=== PATIENT | male | born 1980 | race Caucasian/White ===

== ENCOUNTER 2016-11-01 02:43 | Emergency (ER) | payer SELFPAY ==
[~2016-11-01] VITALS: Ht 162.6 cm; Wt 86.2 kg
[~2016-11-01 02:43] MED LIST: ADENOSINE 6 MG/2 ML (ADENOCARD) VIAL IV ONE; AMLO5TAB2 PO; AMOX500C2 PO; ASP81CT PO; DILT120C85; DILT60TA PO; DLT30T PO; DOXY100C2 PO; HYDR1TAB PO; LEVO500T69 PO; NAPR-243 PO; TRAM-21 PO; TRIA16.5 NS; TRM50T PO
[2016-11-01] MEDS ORDERED: ASPI-808 PO (02:52)
[2016-11-01] MEDS ORDERED: ADENOSINE 6 MG/2 ML (ADENOCARD) VIAL IV ONE ×2 (03:00)
[2016-11-01] MEDS ORDERED: NS IV 1000 ML 1,000 ML IV ONE (03:00)
[2016-11-01 03:02] LABS: BASOPHILS % (AUTO) 0 % (0-10); EOSINOPHILS # (AUTO) 0.1 10^3/uL (0.0-0.3); EOSINOPHILS % (AUTO) 0 % (0-10); LYMPHOCYTES % (AUTO) 19 % (12-44); MEAN CORPUSCULAR HEMOGLOBIN 35 PG (25-34); MEAN CORPUSCULAR HGB CONC 37 G/DL (32-36); MEAN CORPUSCULAR VOLUME 95 FL (80-99); MEAN PLATELET VOLUME 10.6 FL (7.4-10.4); MONOCYTES # (AUTO) 1.7 X 10^3 (0.0-1.0); MONOCYTES % (AUTO) 8 % (0-12); NEUTROPHILS # (AUTO) 15.9 X 10^3 (1.8-7.8); NEUTROPHILS % (AUTO) 73 % (42-75); PLATELET COUNT 158 10^3/uL (130-400); RED BLOOD COUNT 5.22 10^6/uL (4.35-5.85); RED CELL DISTRIBUTION WIDTH 12.8 % (10.0-14.5); WHITE BLOOD COUNT 21.7 10^3/uL (4.3-11.0)
[2016-11-01 03:11] LABS: INR 0.9 (0.8-1.4); PROTHROMBIN TIME PATIENT 12.1 SEC (12.2-14.7)
[2016-11-01 03:29] LABS: ALANINE AMINOTRANSFERASE 58 U/L (0-55); ALBUMIN 5.1 G/DL (3.2-4.5); ANION GAP 14 MMOL/L (5-14); ASPARTATE AMINO TRANSFERASE 44 U/L (5-34); BILIRUBIN,TOTAL 0.7 MG/DL (0.1-1.0); BLOOD UREA NITROGEN 5 MG/DL (7-18); BUN/CREATININE RATIO 6; CALCIUM 8.7 MG/DL (8.5-10.1); CARBON DIOXIDE 18 MMOL/L (21-32); CHLORIDE 106 MMOL/L (98-107); GFR ESTIMATED > 60; GLUCOSE 120 MG/DL (70-105); MAGNESIUM 2.5 MG/DL (1.8-2.4); POTASSIUM 3.9 MMOL/L (3.6-5.0); SODIUM 138 MMOL/L (135-145); TOTAL PROTEIN 7.7 G/DL (6.4-8.2)
[2016-11-01 03:33] LABS: BAND NEUTROPHILS 0 %; BASOPHILS % (MANUAL) 0 %; EOSINOPHILS % (MANUAL) 1 %; LYMPHOCYTES % (MANUAL) 7 %; NEUTROPHILS % (MANUAL) 79 %; REACTIVE LYMPHOCYTES 10 %
[2016-11-01 03:35] LABS: MYOGLOBIN SERUM 64.9 NG/ML (10.0-92.0)
--- NOTE | 2016-11-01 03:41 | ED Cardiac General ---
History of Present Illness General Chief Complaint: Cardiac/General Problems Stated Complaint: HEART RATE Nursing Triage Note: Patient reports he was laying on the floor and his heart began to race. patient reports he is SOA and jittery. Patient reports having a history of SVT Source: patient, old records Exam Limitations: no limitations History of Present Illness Time seen by provider: 02:47 Initial Comments This 36-year-old with history of SVT presents to the emergency room with complaints of tachycardia and palpitations. Symptoms started just shortly before arrival. He states Valsalva maneuver has failed. He reports having been treated in an outside ER recently requiring adenosine therapy to abort the SVT. Patient is very anxious, smells of alcohol, and admits to drinking significantly today. He complains of significant dyspnea with his tachycardia. Allergies and Home Medications Allergies Coded Allergies: NKANo Known Allergies (Verified Allergy, Unknown, 11/21/06) No Known Drug Allergies (Unverified , 04/21/09) Home Medications Aspirin 325 Mg Tablet 325 MG PO DAILY (Reported) Review of Systems Constitutional: see HPI other (intoxicated) EENTM: No Symptoms Reported Respiratory: See HPI Cardiovascular: See HPI Gastrointestinal: No Symptoms Reported Genitourinary: No Symptoms Reported Musculoskeletal: no symptoms reported Skin: no symptoms reported Psychiatric/Neurological: No Symptoms Reported Endocrine: No Symptoms Reported Past Enxmdgi-Gfczoj-Btjbuz Hx Patient Social History Alcohol Use: Occasionally Uses Recreational Drug Use: No Smoking Status: Current Everyday Smoker Type Used: Cigarettes Recent Foreign Travel: No Contact w/Someone Who Travel: No Recent Infectious Disease Expo: No Recent Hopitalizations: Yes (kidney stone, enlarged liver, ) Physical Abuse Screen: No Sexual Abuse: No Surgeries HX Surgeries: Yes (right knee surgery, surgery on eye) Surgeries: Eye Surgery, Orthopedic Respiratory Hx Respiratory Disorders: No Cardiovascular Hx Cardiac Disorders: Yes (SVT) Neurological Hx Neurological Disorders: No Reproductive System Hx Reproductive Disorders: No Genitourinary Hx Genitourinary Disorders: Yes Gastrointestinal Hx Gastrointestinal Disorders: Yes Gastrointestinal Disorders: Chronic Constipation Musculoskeletal Hx Musculoskeletal Disorders: Yes (hx rhabdomyolysis) Endocrine Hx Endocrine Disorders: Yes HEENT HX ENT Disorders: Yes Psychosocial Hx Psychiatric Problems: No Integumentary HX Skin/Integumentary Disorder: No Blood Transfusions Hx Blood Disorders: No Physical Exam Vital Signs Vital Sign - Last 12Hours 11/01/16 02:49 Temp 98.2 Pulse 215 Resp 19 B/P 117/110 Pulse Ox 97 Capillary Refill : Less Than 3 Seconds General Appearance: WD/WN Mild Distress Other (Intoxicated) HEENT: PERRL/EOMI Normal ENT Inspection Other (oropharynx somewhat dry) Neck: Normal Inspection Respiratory: Lungs Clear Normal Breath Sounds No Accessory Muscle Use No Respiratory Distress Cardiovascular: No Edema No Murmur Tachycardia Gastrointestinal: Non Tender Soft Extremity: Normal Inspection No Pedal Edema Neurologic/Psychiatric: Alert Oriented x3 No Motor/Sensory Deficits Normal 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 smt technician II-XII Norm as Tested Other (intoxicated) Skin: Normal Color Warm/Dry Progress/Results/Core Measures Results/Orders Lab Results Laboratory Tests Test 11/01/16 02:55 11/01/16 03:50 11/01/16 04:46 Range/Units Activated Partial Thromboplast Time 26 24-35 SEC Alanine Aminotransferase (ALT/SGPT) 58 H 0-55 U/L Albumin 5.1 H 3.2-4.5 G/DL Alkaline Phosphatase 88 40-136 U/L Anion Gap 14 5-14 MMOL/L Aspartate Amino Transf (AST/SGOT) 44 H 5-34 U/L BUN/Creatinine Ratio 6 Band Neutrophils 0 % Basophils # (Auto) 0.0 0.0-0.1 10^3/uL Basophils % (Manual) 0 % Basophils (%) (Auto) 0 0-10 % Blood Morphology Comment NORMAL Blood Urea Nitrogen 5 L 7-18 MG/DL C-Reactive Protein High Sensitivity 0.25 0.00-0.50 MG/DL Calcium Level 8.7 8.5-10.1 MG/DL Carbon Dioxide Level 18 L 21-32 MMOL/L Chloride Level 106 98-107 MMOL/L Creatinine 0.90 0.60-1.30 MG/DL Eosinophils # (Auto) 0.1 0.0-0.3 10^3/uL Eosinophils % (Manual) 1 % Eosinophils (%) (Auto) 0 0-10 % Estimat Glomerular Filtration Rate > 60 Glucose Level 120 H 70-105 MG/DL Hematocrit 50 40-54 % Hemoglobin 18.3 H 13.3-17.7 G/DL INR Comment 0.9 0.8-1.4 Lymphocytes # (Auto) 4.0 1.0-4.0 X 10^3 Lymphocytes % (Manual) 7 % Lymphocytes (%) (Auto) 19 12-44 % Magnesium Level 2.5 H 1.8-2.4 MG/DL Mean Corpuscular Hemoglobin 35 H 25-34 PG Mean Corpuscular Hemoglobin Concent 37 H 32-36 G/DL Mean Corpuscular Volume 95 80-99 FL Mean Platelet Volume 10.6 H 7.4-10.4 FL Monocytes # (Auto) 1.7 H 0.0-1.0 X 10^3 Monocytes % (Manual) 3 % Monocytes (%) (Auto) 8 0-12 % Myoglobin 64.9 10.0-92.0 NG/ML Neutrophils # (Auto) 15.9 H 1.8-7.8 X 10^3 Neutrophils % (Manual) 79 % Neutrophils (%) (Auto) 73 42-75 % Platelet Count 158 130-400 10^3/uL Potassium Level 3.9 3.6-5.0 MMOL/L Prothrombin Time 12.1 L 12.2-14.7 SEC Reactive Lymphocytes 10 % Red Blood Count 5.22 4.35-5.85 10^6/uL Red Cell Distribution Width 12.8 10.0-14.5 % Serum Alcohol 291 H <10 MG/DL Sodium Level 138 135-145 MMOL/L TSH Saunders Testing 2.08 0.35-4.94 UIU/ML Total Bilirubin 0.7 0.1-1.0 MG/DL Total Protein 7.7 6.4-8.2 G/DL Troponin I < 0.30 <0.30 NG/ML White Blood Count 21.7 H 4.3-11.0 10^3/uL Ur Tricyclic Antidepressants Screen NEGATIVE NEGATIVE Urine Amphetamines Screen NEGATIVE NEGATIVE Urine Bacteria NEGATIVE /HPF Urine Barbiturates Screen NEGATIVE NEGATIVE Urine Benzodiazepines Screen NEGATIVE NEGATIVE Urine Bilirubin NEGATIVE NEGATIVE Urine Cannabinoids Screen NEGATIVE NEGATIVE Urine Casts NONE /LPF Urine Clarity CLEAR Urine Cocaine Screen NEGATIVE NEGATIVE Urine Color YELLOW Urine Crystals NONE /LPF Urine Culture Indicated NO Urine Glucose (UA) NEGATIVE NEGATIVE Urine Ketones NEGATIVE NEGATIVE Urine Leukocyte Esterase NEGATIVE NEGATIVE Urine Methadone Screen NEGATIVE NEGATIVE Urine Methamphetamines Screen NEGATIVE NEGATIVE Urine Mucus NEGATIVE /LPF Urine Nitrite NEGATIVE NEGATIVE Urine Opiates Screen NEGATIVE NEGATIVE Urine Oxycodone Screen NEGATIVE NEGATIVE Urine Phencyclidine Screen NEGATIVE NEGATIVE Urine Propoxyphene Screen NEGATIVE NEGATIVE Urine Protein NEGATIVE NEGATIVE Urine RBC NONE /HPF Urine RBC (Auto) NEGATIVE NEGATIVE Urine Specific [place] 1.005 L 1.016-1.022 Urine Squamous Epithelial Cells RARE /HPF Urine Urobilinogen NORMAL NORMAL MG/DL Urine WBC NONE /HPF Urine pH 6.5 5-9 Lactic Acid Level 1.4 0.5-2.0 MMOL/L My Orders Orders-WALLY BILLY MD Adenosine Injection (Adenocard Injection (11/01/16 02:43) Cbc With Automated Diff (11/01/16 02:49) Magnesium (11/01/16 02:49) Chest 1 View, Ap/Pa Only (11/01/16 02:49) Ekg Tracing (11/01/16 02:49) Cardiac Profile 1 (11/01/16 02:49) Comprehensive Metabolic Panel (11/01/16 02:49) Myoglobin Serum (11/01/16 02:49) Protime With Inr (11/01/16 02:49) Partial Thromboplastin Time (11/01/16 02:49) O2 (11/01/16 02:49) Monitor-Rhythm Ecg Trace Only (11/01/16 02:49) Saline Lock/Iv-Start (11/01/16 02:49) Adenosine Injection (Adenocard Injection (11/01/16 03:00) Adenosine Injection (Adenocard Injection (11/01/16 03:00) Alcohol (11/01/16 02:53) Drug Screen Stat (Urine) (11/01/16 02:53) Thyroid Analyzer (11/01/16 02:53) Ns Iv 1000 Ml (Sodium Chloride 0.9%) (11/01/16 03:00) Manual Differential (11/01/16 02:55) Ua Culture If Indicated (11/01/16 03:42) Chest Pa/Lat (2 View) (11/01/16 03:42) Hs C Reactive Protein (11/01/16 04:38) Lactic Acid Analyzer (11/01/16 04:38) Blood Culture (11/01/16 04:38) Ceftriaxone Injection (Rocephin Injectio (11/01/16 04:45) Influenza A And B Antigens (11/01/16 04:38) Ceftriaxone Injection (Rocephin Injectio (11/01/16 05:01) Normal Saline (Morton Mini) (Ns (Morton (11/01/16 05:02) Medications Given in ED Current Medications Medications Dose Ordered Sig/Bartolome Route Start Time Stop Time Status Last Admin Dose Admin Ceftriaxone Sodium/Sodium Chloride 50 ml @ 100 mls/hr ONCE ONCE IV 11/01/16 04:45 11/01/16 05:14 DC 11/01/16 05:15 100 MLS/HR Vital Signs/I&O Vital Sign - Last 12Hours 11/01/16 11/01/16 11/01/16 02:49 04:57 05:37 Temp 98.2 98.6 97.8 Pulse 215 105 102 Resp 19 12 21 B/P 117/110 97/62 Pulse Ox 97 98 99 Blood Pressure Mean: 112 Progress Note #1: Time: 03:40 Progress Note patient was successfully converted to sinus rhythm with 6 mg of IV adenosine. Significant leukocytosis was noted on CBC. A 2 view chest x-ray was ordered for a better view of the chest. UA was ordered to further evaluate for source of infection. Patient reports having had diarrhea and abdominal pain for 3 days prior to today. The symptoms are now gone. He has also had a recent cough. Progress Note #2: Time: 04:41 Progress Note Patient is tachycardic with a heart rate around 110 asleep. He has been hydrated with a liter of IV fluids and has had 1500 mL of urine output. He seems well hydrated. I have concerns about his tachycardia and leukocytosis although no source of infection has yet been found. Chest x-ray and urine were clear. Influenza screen will be collected along with lactic acid and blood cultures. Rocephin will be empirically administered. Disposition will be pending lab results. Progress Note #3: Time: 05:27 Progress Note lactic acid and CRP are both normal. This would make bacterial infection and sepsis very unlikely. Patient did have blood cultures drawn and Rocephin administered as a precaution. Influenza screen was also negative. Patient will be dismissed home to outpatient follow-up. Diagnostic Imaging Diagonstic Imaging: Xray Plain Films/CT/US/NM/MRI: chest Comments single view chest x-ray viewed by me and report not available. No significant abnormalities appreciated on the single view. Diagonstic Imaging: Xray Plain Films/CT/US/NM/MRI: chest Comments chest x-ray viewed by me. Report not yet available. No infiltrate or consolidation appreciated. Departure Impression Impression: Primary Impression: SVT (supraventricular tachycardia) Additional Impressions: Leukocytosis Qualified Code: D72.829 - Elevated white blood cell count, unspecified Sinus tachycardia Alcohol intoxication Qualified Code: F10.120 - Alcohol abuse with intoxication, uncomplicated Disposition: 01 HOME, SELF-CARE Condition: Improved Departure-Patient Inst. Decision time for Depature: 05:27 Referrals: CHUCK DALTON MD (PCP/Family) Primary Care Physician Patient Instructions: Alcohol Abuse and Alcoholism (DC), Paroxysmal Supraventricular Tachycardia (DC) Add. Discharge Instructions: Follow-up with your primary care provider in your [facility] as soon as possible. Return to care if symptoms worsen or if you have SVT unresponsive to Valsalva maneuvers. At your follow-up appointment please request a repeat blood draw to check your white blood cell count. Please follow-up within the next week. Reduce alcohol consumption to decrease risk of further problems. All discharge instructions reviewed with patient and/or family. Voiced understanding. Copy Copies To 1: DELMY ORTIZ MD Copies To 2: CHUCK DALTON MD, JOSHUA T MD Nov 01, 2016 03:41 All discharge instructions reviewed with patient and/or family. Voiced understanding. WALLY BILLY MD Nov 01, 2016 03:41
[2016-11-01 03:59] LABS: BILIRUBIN,URINE NEGATIVE (NEGATIVE); KETONES,URINE NEGATIVE (NEGATIVE); LEUKOCYTE ESTERASE ,URINE NEGATIVE (NEGATIVE); NITRITE,URINE NEGATIVE (NEGATIVE); PH,URINE 6.5 (5-9); PROTEIN,URINE NEGATIVE (NEGATIVE); UROBILINOGEN,URINE NORMAL (NORMAL)
[2016-11-01 04:08] LABS: SQUAMOUS EPITHELIAL CELL,UR RARE /HPF
[2016-11-01] MEDS ORDERED: cefTRIAXone INJECTION 1,000 MG in NORMAL SALINE (BAXTER MINI) 50 ML IV ONE (04:45)
[2016-11-01] MEDS ORDERED: cefTRIAXone 1 GM (ROCEPHIN) VIAL ONE (05:01)
[2016-11-01] MEDS ORDERED: NORMAL SALINE (BAXTER MINI) 50 ML IV ONE (05:02)
[2016-11-01 05:37] VITALS: BP 105/63
--- NOTE | 2016-11-01 06:41 | Diagnostic Imaging Report ---
Clinical indication: Patient complains of heart racing. Exam: Chest x-ray PA and lateral views. Comparisons: Chest x-ray dated 11/01/2016. Findings: Lungs/pleura: Lungs are clear. There is no pneumothorax. There is no pleural effusion. Mediastinum: Unremarkable. Pulmonary vasculature: Unremarkable. Heart: Unremarkable. Bones/extrathoracic soft tissue: Unremarkable. Impression: There is no radiographic evidence of acute cardiopulmonary process. Dictated by: Dictated on workstation # [id number]
--- NOTE | 2016-11-01 06:43 | Diagnostic Imaging Report ---
Clinical indication: Patient has symptoms of heart racing. Exam: Portable chest x-ray upright view. Comparisons: Chest x-ray dated 10/21/2011. Findings: Lungs/pleura: Lungs are clear. There is no pneumothorax. There is no pleural effusion. Mediastinum: Unremarkable. Pulmonary vasculature: Unremarkable. Heart: Unremarkable. Bones/extrathoracic soft tissue: Unremarkable. Impression: There is no radiographic evidence of acute cardiopulmonary process. Dictated by: Dictated on workstation # [id number]
== END 2016-11-01 05:42 | disposition home or self-care (01) ==
LOC: EDUNIT# 02:43 → ER 02:47
DX: I47.1 Supraventricular tachycardia (principal); D72.829 Elevated white blood cell count, unspecified; F41.9 Anxiety disorder, unspecified; F10.10 Alcohol abuse, uncomplicated; Y90.8 Blood alcohol level of 240 mg/100 ml or more; F17.210 Nicotine dependence, cigarettes, uncomplicated; Z79.84 Long term (current) use of oral hypoglycemic drugs
CPT/HCPCS: 36415; 71010; 71020; 80053; 80306; 80320; 81000; 83605; 83735; 83874; 84443; 84484; 85007; 85027; 85610; 85730; 86141; 87040; 87804; 93005; 93041; 96361; 96365; 96375

== ENCOUNTER 2016-11-18 19:57 | Emergency (ER) | payer SELFPAY ==
[~2016-11-18] VITALS: Ht 162.6 cm; Wt 86.2 kg
[~2016-11-18 19:57] MED LIST changes: -ADENOSINE 6 MG/2 ML (ADENOCARD) VIAL IV ONE; +ASPI-808 PO
[2016-11-18 20:10] LABS: BASOPHILS # (AUTO) 0.1 10^3/uL (0.0-0.1); BASOPHILS % (AUTO) 0 % (0-10); EOSINOPHILS # (AUTO) 0.2 10^3/uL (0.0-0.3); EOSINOPHILS % (AUTO) 1 % (0-10); LYMPHOCYTES # (AUTO) 4.9 X 10^3 (1.0-4.0); LYMPHOCYTES % (AUTO) 25 % (12-44); MEAN CORPUSCULAR HEMOGLOBIN 34 PG (25-34); MEAN CORPUSCULAR HGB CONC 36 G/DL (32-36); MEAN CORPUSCULAR VOLUME 95 FL (80-99); MEAN PLATELET VOLUME 10.3 FL (7.4-10.4); MONOCYTES # (AUTO) 1.1 X 10^3 (0.0-1.0); MONOCYTES % (AUTO) 6 % (0-12); NEUTROPHILS # (AUTO) 13.5 X 10^3 (1.8-7.8); NEUTROPHILS % (AUTO) 68 % (42-75); PLATELET COUNT 265 10^3/uL (130-400); RED BLOOD COUNT 5.23 10^6/uL (4.35-5.85); RED CELL DISTRIBUTION WIDTH 12.4 % (10.0-14.5); WHITE BLOOD COUNT 19.8 10^3/uL (4.3-11.0)
--- NOTE | 2016-11-18 20:10 | ED Cardiac General ---
History of Present Illness General Chief Complaint: Cardiac/General Problems Stated Complaint: SVT Nursing Triage Note: Patient brought in by EMS with complaints of SVT. patient was given 6mg adenosine History of Present Illness Time seen by provider: 20:00 Initial Comments 36-year-old male who presents status post SVT. Patient has a history of recurrent SVT. Doesn't take any outpatient medications because he states he can' t afford it. However patient does drink a 12 pack of day. Patient was brought in by EMS. EMS gave him 6 of adenosine and converted. They state that initial heart rate an EKG was SVT at 208. Patient at this time as no symptoms. Patient is ready to go home and would like a "short workup" Allergies and Home Medications Allergies Coded Allergies: NKANo Known Allergies (Verified Allergy, Unknown, 11/21/06) No Known Drug Allergies (Unverified , 04/21/09) Home Medications Metoprolol Succinate 25 Mg Tab.er.24h #30 25 MG PO DAILY Prescribed by: GM BRUSH on 11/18/162011 Review of Systems Constitutional: No chills, No fever EENTM: No Symptoms Reported Respiratory: No Symptoms Reported Cardiovascular: See HPI Gastrointestinal: No Symptoms Reported Genitourinary: No Symptoms Reported Musculoskeletal: no symptoms reported Skin: no symptoms reported Psychiatric/Neurological: No Symptoms Reported Past Cumhdoh-Owholg-Juylqw Hx Patient Social History Alcohol Use: Regular Use Recreational Drug Use: No Smoking Status: Current Everyday Smoker Type Used: Cigarettes Recent Foreign Travel: No Contact w/Someone Who Travel: No Recent Infectious Disease Expo: No Recent Hopitalizations: Yes (kidney stone, enlarged liver, ) Physical Abuse Screen: No Sexual Abuse: No Surgeries HX Surgeries: Yes (right knee surgery, surgery on eye) Surgeries: Eye Surgery, Orthopedic Respiratory Hx Respiratory Disorders: No Cardiovascular Hx Cardiac Disorders: Yes (SVT) Neurological Hx Neurological Disorders: No Reproductive System Hx Reproductive Disorders: No Genitourinary Hx Genitourinary Disorders: Yes Gastrointestinal Hx Gastrointestinal Disorders: Yes Gastrointestinal Disorders: Chronic Constipation Musculoskeletal Hx Musculoskeletal Disorders: Yes (hx rhabdomyolysis) Endocrine Hx Endocrine Disorders: Yes HEENT HX ENT Disorders: Yes Psychosocial Hx Psychiatric Problems: No Integumentary HX Skin/Integumentary Disorder: No Blood Transfusions Hx Blood Disorders: No Physical Exam Vital Signs Vital Sign - Last 12Hours 11/18/16 20:00 Temp 97.4 Pulse 128 Resp 18 B/P 138/99 Pulse Ox 99 Capillary Refill : Less Than 3 Seconds General Appearance: No Apparent Distress WD/WN HEENT: PERRL/EOMI TMs Normal Neck: Non Tender Respiratory: Chest Non Tender Lungs Clear Normal Breath Sounds Cardiovascular: No Edema No Gallop Tachycardia Gastrointestinal: Normal Bowel Sounds Extremity: Normal Capillary Refill Neurologic/Psychiatric: Alert Oriented x3 No Motor/Sensory Deficits Skin: Normal Color Progress/Results/Core Measures Results/Orders Lab Results Laboratory Tests Test 11/18/16 20:05 Range/Units Alanine Aminotransferase (ALT/SGPT) 31 0-55 U/L Albumin 4.7 H 3.2-4.5 G/DL Alkaline Phosphatase 87 40-136 U/L Anion Gap 11 5-14 MMOL/L Aspartate Amino Transf (AST/SGOT) 26 5-34 U/L BUN/Creatinine Ratio 10 Band Neutrophils 2 % Basophils # (Auto) 0.1 0.0-0.1 10^3/uL Basophils % (Manual) 0 % Basophils (%) (Auto) 0 0-10 % Blood Morphology Comment NORMAL Blood Urea Nitrogen 10 7-18 MG/DL Calcium Level 9.0 8.5-10.1 MG/DL Carbon Dioxide Level 21 21-32 MMOL/L Chloride Level 105 98-107 MMOL/L Creatinine 1.01 0.60-1.30 MG/DL Eosinophils # (Auto) 0.2 0.0-0.3 10^3/uL Eosinophils % (Manual) 2 % Eosinophils (%) (Auto) 1 0-10 % Estimat Glomerular Filtration Rate > 60 Glucose Level 90 70-105 MG/DL Hematocrit 50 40-54 % Hemoglobin 17.9 H 13.3-17.7 G/DL Lymphocytes # (Auto) 4.9 H 1.0-4.0 X 10^3 Lymphocytes % (Manual) 27 % Lymphocytes (%) (Auto) 25 12-44 % Magnesium Level 2.3 1.8-2.4 MG/DL Mean Corpuscular Hemoglobin 34 25-34 PG Mean Corpuscular Hemoglobin Concent 36 32-36 G/DL Mean Corpuscular Volume 95 80-99 FL Mean Platelet Volume 10.3 7.4-10.4 FL Monocytes # (Auto) 1.1 H 0.0-1.0 X 10^3 Monocytes % (Manual) 6 % Monocytes (%) (Auto) 6 0-12 % Myoglobin 62.8 10.0-92.0 NG/ML Neutrophils # (Auto) 13.5 H 1.8-7.8 X 10^3 Neutrophils % (Manual) 63 % Neutrophils (%) (Auto) 68 42-75 % Platelet Count 265 130-400 10^3/uL Potassium Level 4.0 3.6-5.0 MMOL/L Red Blood Count 5.23 4.35-5.85 10^6/uL Red Cell Distribution Width 12.4 10.0-14.5 % Sodium Level 137 135-145 MMOL/L Total Bilirubin 0.4 0.1-1.0 MG/DL Total Protein 7.2 6.4-8.2 G/DL Troponin I < 0.30 <0.30 NG/ML White Blood Count 19.8 H 4.3-11.0 10^3/uL My Orders Orders-BRUSH,GM L DO Cbc With Automated Diff (11/18/16 20:03) Magnesium (11/18/16 20:03) Ekg Tracing (11/18/16 20:03) Cardiac Profile 1 (11/18/16 20:03) Comprehensive Metabolic Panel (11/18/16 20:03) Myoglobin Serum (11/18/16 20:03) Monitor-Rhythm Ecg Trace Only (11/18/16 20:03) Aspirin Chewable Tablet (Baby Aspirin Ch (11/18/16 20:15) Saline Lock/Iv-Start (11/18/16 20:03) Manual Differential (11/18/16 20:05) Vital Signs/I&O Vital Sign - Last 12Hours 11/18/16 11/18/16 20:00 20:56 Temp 97.4 98.2 Pulse 128 117 Resp 18 16 B/P 138/99 Pulse Ox 99 99 Blood Pressure Mean: 112 ECG Initial ECG Impression Date: Nov 18, 2016 Initial ECG Impression Time: 20:05 Initial ECG Rate: 114 Initial ECG Rhythm: S.Tach Initial ECG Intervals: Normal Initial ECG Comparisson: Unchanged Comment Sinus Tachycardia Departure Communication Progress Notes pt ready for discharge, discussed with pt need for outpt follow up and medication to control symptoms, Impression Impression: Primary Impression: SVT (supraventricular tachycardia) Disposition: 01 HOME, SELF-CARE Condition: Stable/Unchanged Departure-Patient Inst. Referrals: DELMY ORTIZ MD (PCP/Family) Primary Care Physician Patient Instructions: Supraventricular Tachycardia (SVT) Scripts Metoprolol Succinate 25 Mg Tab.er.24h25 Mg PO DAILY #30 TAB Prov:GM BRUSH DO 11/18/16 GM BRUSH DO Nov 18, 2016 20:10
[2016-11-18] MEDS ORDERED: METO-270 PO (20:12)
[2016-11-18] MEDS ORDERED: ASPIRIN 81 MG CHEW (CHILDREN'S ASA) PO ONE (20:15)
[2016-11-18 20:24] LABS: BAND NEUTROPHILS 2 %; BASOPHILS % (MANUAL) 0 %; EOSINOPHILS % (MANUAL) 2 %; LYMPHOCYTES % (MANUAL) 27 %; NEUTROPHILS % (MANUAL) 63 %
[2016-11-18 20:26] LABS: ALANINE AMINOTRANSFERASE 31 U/L (0-55); ALBUMIN 4.7 G/DL (3.2-4.5); ANION GAP 11 MMOL/L (5-14); ASPARTATE AMINO TRANSFERASE 26 U/L (5-34); BILIRUBIN,TOTAL 0.4 MG/DL (0.1-1.0); BLOOD UREA NITROGEN 10 MG/DL (7-18); BUN/CREATININE RATIO 10; CARBON DIOXIDE 21 MMOL/L (21-32); CHLORIDE 105 MMOL/L (98-107); CREATININE SERUM 1.01 MG/DL (0.60-1.30); GFR ESTIMATED > 60; GLUCOSE 90 MG/DL (70-105); MAGNESIUM 2.3 MG/DL (1.8-2.4); SODIUM 137 MMOL/L (135-145); TOTAL PROTEIN 7.2 G/DL (6.4-8.2)
[2016-11-18 20:32] LABS: MYOGLOBIN SERUM 62.8 NG/ML (10.0-92.0)
[2016-11-18 20:56] VITALS: BP 130/79
== END 2016-11-18 20:55 | disposition home or self-care (01) ==
LOC: EDUNIT# 19:57 → ER 19:58
DX: I47.1 Supraventricular tachycardia (principal); F10.10 Alcohol abuse, uncomplicated; F17.210 Nicotine dependence, cigarettes, uncomplicated; Z91.14 Patient's other noncompliance with medication regimen
CPT/HCPCS: 36415; 80053; 83735; 83874; 84484; 85007; 85027; 93005; 93041

== ENCOUNTER 2016-12-24 20:07 | Emergency (ER) | payer SELFPAY ==
[~2016-12-24] VITALS: Ht 172.7 cm; Wt 81.6 kg
[~2016-12-24 20:07] MED LIST changes: +METO-270 PO
[2016-12-24] MEDS ORDERED: ASPIRIN 81 MG CHEW (CHILDREN'S ASA) PO ONE (20:15)
--- NOTE | 2016-12-24 20:42 | Diagnostic Imaging Report ---
INDICATION: Supraventricular tachycardia. COMPARISON: 11/01/2016. EXAMINATION: Single frontal view of the chest was obtained. FINDINGS: Normal heart size and pulmonary vascularity. The lungs are well aerated and clear. No large pleural effusion or pneumothorax is seen. The visualized osseous structures show no acute abnormalities. IMPRESSION: No acute cardiopulmonary process. Dictated by: Dictated on workstation # [id number]
[2016-12-24 20:46] LABS: BASOPHILS % (AUTO) 0 % (0-10); EOSINOPHILS # (AUTO) 0.2 10^3/uL (0.0-0.3); EOSINOPHILS % (AUTO) 2 % (0-10); LYMPHOCYTES # (AUTO) 2.7 X 10^3 (1.0-4.0); LYMPHOCYTES % (AUTO) 33 % (12-44); MEAN CORPUSCULAR HEMOGLOBIN 35 PG (25-34); MEAN CORPUSCULAR HGB CONC 36 G/DL (32-36); MEAN CORPUSCULAR VOLUME 97 FL (80-99); MEAN PLATELET VOLUME 10.4 FL (7.4-10.4); MONOCYTES % (AUTO) 12 % (0-12); NEUTROPHILS # (AUTO) 4.4 X 10^3 (1.8-7.8); NEUTROPHILS % (AUTO) 53 % (42-75); PLATELET COUNT 188 10^3/uL (130-400); RED BLOOD COUNT 4.88 10^6/uL (4.35-5.85); RED CELL DISTRIBUTION WIDTH 13.6 % (10.0-14.5); WHITE BLOOD COUNT 8.3 10^3/uL (4.3-11.0)
[2016-12-24 20:56] LABS: PROTHROMBIN TIME PATIENT 12.5 SEC (12.2-14.7)
[2016-12-24 21:06] LABS: ALANINE AMINOTRANSFERASE 88 U/L (0-55); ALBUMIN 4.1 G/DL (3.2-4.5); ANION GAP 16 MMOL/L (5-14); ASPARTATE AMINO TRANSFERASE 57 U/L (5-34); BILIRUBIN,TOTAL 0.4 MG/DL (0.1-1.0); BLOOD UREA NITROGEN 5 MG/DL (7-18); BUN/CREATININE RATIO 7; CALCIUM 8.5 MG/DL (8.5-10.1); CARBON DIOXIDE 18 MMOL/L (21-32); CHLORIDE 105 MMOL/L (98-107); CREATININE SERUM 0.75 MG/DL (0.60-1.30); GFR ESTIMATED > 60; GLUCOSE 118 MG/DL (70-105); MAGNESIUM 2.1 MG/DL (1.8-2.4); POTASSIUM 3.4 MMOL/L (3.6-5.0); SODIUM 139 MMOL/L (135-145); TOTAL PROTEIN 6.6 G/DL (6.4-8.2)
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
[2016-12-24] MEDS ORDERED: METO-333 PO (21:08)
[2016-12-24 21:13] LABS: MYOGLOBIN SERUM 44.5 NG/ML (10.0-92.0)
[2016-12-24 23:10] VITALS: BP 136/96
== END 2016-12-24 23:10 | disposition home or self-care (01) ==
LOC: EDUNIT# 20:07 → ER 20:08
DX: I47.1 Supraventricular tachycardia (principal); F10.10 Alcohol abuse, uncomplicated; F17.210 Nicotine dependence, cigarettes, uncomplicated
CPT/HCPCS: 36415; 71010; 80053; 83735; 83874; 84484; 85025; 85610; 85730; 93005; 93041

== ENCOUNTER 2017-03-11 22:30 | Emergency (ER) | payer SELFPAY ==
[~2017-03-11] VITALS: Ht 175.3 cm; Wt 81.6 kg
[~2017-03-11 22:30] MED LIST changes: +METO-333 PO
[2017-03-11 22:52] LABS: BASOPHILS % (AUTO) 0 % (0-10); EOSINOPHILS # (AUTO) 0.2 10^3/uL (0.0-0.3); EOSINOPHILS % (AUTO) 1 % (0-10); LYMPHOCYTES # (AUTO) 6.2 X 10^3 (1.0-4.0); LYMPHOCYTES % (AUTO) 45 % (12-44); MEAN CORPUSCULAR HEMOGLOBIN 34 PG (25-34); MEAN CORPUSCULAR HGB CONC 36 G/DL (32-36); MEAN CORPUSCULAR VOLUME 96 FL (80-99); MEAN PLATELET VOLUME 10.5 FL (7.4-10.4); MONOCYTES # (AUTO) 1.1 X 10^3 (0.0-1.0); MONOCYTES % (AUTO) 8 % (0-12); NEUTROPHILS # (AUTO) 6.3 X 10^3 (1.8-7.8); NEUTROPHILS % (AUTO) 46 % (42-75); PLATELET COUNT 278 10^3/uL (130-400); RED BLOOD COUNT 5.18 10^6/uL (4.35-5.85); RED CELL DISTRIBUTION WIDTH 12.3 % (10.0-14.5); WHITE BLOOD COUNT 13.8 10^3/uL (4.3-11.0)
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
[2017-03-11 22:57] LABS: PROTHROMBIN TIME PATIENT 12.8 SEC (12.2-14.7)
[2017-03-11] MEDS ORDERED: ASPIRIN 81 MG CHEW (CHILDREN'S ASA) PO ONE (23:00)
[2017-03-11 23:09] LABS: ALANINE AMINOTRANSFERASE 27 U/L (0-55); ANION GAP 20 MMOL/L (5-14); ASPARTATE AMINO TRANSFERASE 26 U/L (5-34); BILIRUBIN,TOTAL 0.4 MG/DL (0.1-1.0); BLOOD UREA NITROGEN 10 MG/DL (7-18); BUN/CREATININE RATIO 10; CARBON DIOXIDE 15 MMOL/L (21-32); CHLORIDE 107 MMOL/L (98-107); CREATININE SERUM 0.98 MG/DL (0.60-1.30); GFR ESTIMATED > 60; GLUCOSE 91 MG/DL (70-105); MAGNESIUM 2.9 MG/DL (1.8-2.4); POTASSIUM 3.4 MMOL/L (3.6-5.0); SODIUM 142 MMOL/L (135-145); TOTAL PROTEIN 7.7 G/DL (6.4-8.2)
[2017-03-11] MEDS ORDERED: METO-333 PO (23:16)
[2017-03-11 23:18] LABS: MYOGLOBIN SERUM 79.7 NG/ML (10.0-92.0)
[2017-03-11 23:24] VITALS: BP 136/86
[2017-03-12] MEDS ORDERED: NS IV 1000 ML 1,000 ML IV SCH (02:15)
--- NOTE | 2017-03-12 08:06 | Diagnostic Imaging Report ---
INDICATION: Heart palpitations COMPARISON: 12/24/2016 FINDINGS: Upright portable view of the chest is obtained. Heart size is normal. The pulmonary vessels appear unremarkable. There is no pneumothorax, mediastinal widening or pleural fluid. The lungs are clear. IMPRESSION: Negative chest Dictated by: Dictated on workstation # [id number]
== END 2017-03-11 23:24 | disposition left against medical advice (07) ==
LOC: ER 22:36 → EDUNIT# 22:36 → ER 23:24
DX: R00.0 Tachycardia, unspecified (principal); F10.120 Alcohol abuse with intoxication, uncomplicated; F17.210 Nicotine dependence, cigarettes, uncomplicated; Y90.8 Blood alcohol level of 240 mg/100 ml or more
CPT/HCPCS: 36415; 71010; 80053; 80320; 83735; 83874; 84484; 85025; 85610; 85730; 93005; 93041; 96360

== ENCOUNTER 2017-05-03 17:29 | Observation (INO) | payer OTHER ==
[~2017-05-03] VITALS: Ht 167.6 cm; Wt 97.5 kg
[2017-05-03] MEDS ORDERED: meTOproloL SUCCINATE 50 MG (TOPROL XL) TAB PO SCH (17:45)
[2017-05-03 17:56] LABS: BASOPHILS % (AUTO) 0 % (0-10); EOSINOPHILS % (AUTO) 0 % (0-10); LYMPHOCYTES # (AUTO) 2.8 X 10^3 (1.0-4.0); LYMPHOCYTES % (AUTO) 18 % (12-44); MEAN CORPUSCULAR HEMOGLOBIN 33 PG (25-34); MEAN CORPUSCULAR HGB CONC 35 G/DL (32-36); MEAN CORPUSCULAR VOLUME 95 FL (80-99); MEAN PLATELET VOLUME 10.4 FL (7.4-10.4); MONOCYTES # (AUTO) 0.9 X 10^3 (0.0-1.0); MONOCYTES % (AUTO) 6 % (0-12); NEUTROPHILS # (AUTO) 12.1 X 10^3 (1.8-7.8); NEUTROPHILS % (AUTO) 76 % (42-75); PLATELET COUNT 186 10^3/uL (130-400); RED BLOOD COUNT 4.77 10^6/uL (4.35-5.85); RED CELL DISTRIBUTION WIDTH 12.1 % (10.0-14.5); WHITE BLOOD COUNT 15.8 10^3/uL (4.3-11.0)
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
[2017-05-03 18:05] LABS: INR 1.1 (0.8-1.4); PROTHROMBIN TIME PATIENT 13.6 SEC (12.2-14.7)
[2017-05-03 18:17] LABS: ALANINE AMINOTRANSFERASE 25 U/L (0-55); ALBUMIN 4.3 GM/DL (3.2-4.5); AMYLASE 62 U/L (25-125); ANION GAP 13 MMOL/L (5-14); ASPARTATE AMINO TRANSFERASE 28 U/L (5-34); BILIRUBIN,TOTAL 0.5 MG/DL (0.1-1.0); BLOOD UREA NITROGEN 8 MG/DL (7-18); BUN/CREATININE RATIO 8; CALCIUM 8.3 MG/DL (8.5-10.1); CARBON DIOXIDE 18 MMOL/L (21-32); CHLORIDE 112 MMOL/L (98-107); CREATININE SERUM 0.98 MG/DL (0.60-1.30); GFR ESTIMATED > 60; GLUCOSE 82 MG/DL (70-105); LIPASE 25 U/L (8-78); MAGNESIUM 2.3 MG/DL (1.8-2.4); SODIUM 143 MMOL/L (135-145); TOTAL PROTEIN 7.1 GM/DL (6.4-8.2)
[2017-05-03 18:21] LABS: BAND NEUTROPHILS 1 %; BASOPHILS % (MANUAL) 0 %; EOSINOPHILS % (MANUAL) 0 %; LYMPHOCYTES % (MANUAL) 27 %; NEUTROPHILS % (MANUAL) 65 %
--- NOTE | 2017-05-03 18:45 | Diagnostic Imaging Report ---
INDICATION: Central chest pain radiating into the back. COMPARISON: 03/11/2017. FINDINGS: The lungs are clear. The heart and vessels are normal. There is no effusion or pneumothorax. IMPRESSION: No acute-appearing abnormality. Dictated by: Dictated on workstation # [id number]
[2017-05-03] MEDS ORDERED: NS IV 1000 ML 1,000 ML IV ONE (19:05)
[2017-05-03 20:30] VITALS: BP 102/67
[2017-05-03 21:00] VITALS: BP 103/56
[2017-05-03 21:30] VITALS: BP 95/54
[2017-05-03] MEDS ORDERED: ONDANSETRON 4 MG/2 ML (SDV) Z0FRAN IV PRN (21:30)
[2017-05-03] MEDS ORDERED: CATHETER FLUSH 10 ML SYR IV PRN (21:30)
--- OUTSIDE RECORDS SUMMARY | 2017-05-03 21:32 | XMS REPORT | Continuity of Care Document ---
Author Author [employer] Organization [employer] Address Unknown Phone Unavailable Care Team Providers Care Marketing Manager Name Role Phone [employer] Unavailable Unavailable Problems Medications Allergies, Adverse Reactions, Alerts Immunizations Results Vital Signs Encounters Procedures Plan of Care Social History Assessment and Plan Family History Value Date Source Advance Directives Order Name Results Value Date Source
--- OUTSIDE RECORDS SUMMARY | 2017-05-03 21:38 | XMS REPORT | Continuity of Care Document ---
Author Author [employer] Organization [facility] Address Unknown Phone Unavailable Care Team Providers Care Director Of Coding Name Role Phone [employer] Unavailable Unavailable Problems Medications Allergies, Adverse Reactions, Alerts Immunizations Results Vital Signs Encounters Procedures Plan of Care Social History Assessment and Plan Family History Value Date Source Advance Directives Order Name Results Value Date Source
[2017-05-03] MEDS: PANTOPRAZOLE 40 MG/10 ML (PROTONIX) VIAL IV SCH (21:48)
[2017-05-03] MEDS: NS IV 1000 ML 1,000 ML IV SCH (21:48)
[2017-05-03] MEDS: CATHETER FLUSH 10 ML SYR IV SCH (21:49)
[2017-05-03 22:00] VITALS: BP 92/54
[2017-05-03 23:00] VITALS: BP 96/51
[2017-05-04 04:20] VITALS: BP 88/53
[2017-05-04 04:39] LABS: BASOPHILS % (AUTO) 0 % (0-10); EOSINOPHILS % (AUTO) 0 % (0-10); LYMPHOCYTES # (AUTO) 2.5 X 10^3 (1.0-4.0); LYMPHOCYTES % (AUTO) 18 % (12-44); MEAN CORPUSCULAR HEMOGLOBIN 33 PG (25-34); MEAN CORPUSCULAR HGB CONC 34 G/DL (32-36); MEAN CORPUSCULAR VOLUME 99 FL (80-99); MEAN PLATELET VOLUME 10.7 FL (7.4-10.4); MONOCYTES # (AUTO) 0.8 X 10^3 (0.0-1.0); MONOCYTES % (AUTO) 6 % (0-12); NEUTROPHILS # (AUTO) 10.1 X 10^3 (1.8-7.8); NEUTROPHILS % (AUTO) 75 % (42-75); PLATELET COUNT 159 10^3/uL (130-400); RED BLOOD COUNT 4.56 10^6/uL (4.35-5.85); RED CELL DISTRIBUTION WIDTH 12.6 % (10.0-14.5); WHITE BLOOD COUNT 13.4 10^3/uL (4.3-11.0)
[2017-05-04 04:51] LABS: ANION GAP 13 MMOL/L (5-14); BLOOD UREA NITROGEN 12 MG/DL (7-18); BUN/CREATININE RATIO 15; CARBON DIOXIDE 16 MMOL/L (21-32); CHLORIDE 112 MMOL/L (98-107); CREATININE SERUM 0.81 MG/DL (0.60-1.30); GFR ESTIMATED > 60; POTASSIUM 4.2 MMOL/L (3.6-5.0); SODIUM 141 MMOL/L (135-145)
[2017-05-04 04:56] LABS: CHOLESTEROL 115 MG/DL (< 200); DIRECT LDL 61 MG/DL (1-129); TRIGLYCERIDES 131 MG/DL (<150); VLDL CHOLESTEROL 26 MG/DL (5-40)
[2017-05-04 04:57] LABS: GLUCOSE 52 MG/DL (70-105)
[2017-05-04] MEDS: CATHETER FLUSH 10 ML SYR IV SCH (05:22)
[2017-05-04] MEDS: NS IV 1000 ML 1,000 ML IV SCH (07:06)
[2017-05-04 07:08] LABS: BILIRUBIN,URINE NEGATIVE (NEGATIVE); KETONES,URINE 3+ (NEGATIVE); LEUKOCYTE ESTERASE ,URINE NEGATIVE (NEGATIVE); NITRITE,URINE NEGATIVE (NEGATIVE); PH,URINE 5 (5-9); PROTEIN,URINE 1+ (NEGATIVE); UROBILINOGEN,URINE NORMAL (NORMAL)
[2017-05-04 07:24] LABS: WBC,URINE RARE /HPF
[2017-05-04 08:11] VITALS: BP 96/64
[2017-05-04] MEDS ORDERED: MULT-35 PO (08:42)
[2017-05-04] MEDS ORDERED: ASPI325T32 PO (08:42)
[2017-05-04] MEDS: PANTOPRAZOLE 40 MG/10 ML (PROTONIX) VIAL IV SCH (10:01)
[2017-05-04] MEDS ORDERED: NS IV 1000 ML 1,000 ML IV SCH (10:30)
[2017-05-04] MEDS ORDERED: ONDANSETRON 4 MG/2 ML (SDV) Z0FRAN IV PRN (10:30)
[2017-05-04] MEDS ORDERED: LORazepam 1 MG (ATIVAN) TAB PO NR (10:44)
[2017-05-04] MEDS ORDERED: FOLI1TAB24 PO (10:45)
[2017-05-04] MEDS ORDERED: THIA100T12 PO (10:45)
[2017-05-04] MEDS ORDERED: LORA-405 PO (10:45)
--- NOTE | 2017-05-04 10:50 | Discharge Instructions ---
Discharge [facility] Discharge Medications New, Converted or Re-Newed RX: RX on Chart New Medications: Folic Acid (Folic Acid) 1 Mg Tablet 1 MG PO DAILY, #30 TAB 0 Refills Lorazepam (Ativan) 1 Mg Tablet 1 MG PO UD, #8 TAB 0 Refills take 2 tabs Tuesday night; take 1 tab TID , take 1 tab BID Tuesday, then 1 tab once on Tuesday Thiamine HCl (Thiamine HCl) 100 Mg Tablet 100 MG PO DAILY, #30 TAB 0 Refills Continued Medications: Aspirin (Aspirin EC) 325 Mg Tablet.dr 325 MG PO DAILY, TAB Metoprolol Tartrate (Metoprolol Tartrate) 25 Mg Tablet 25 MG PO BID PRN for CHEST PAIN, #30 TAB Multivitamin (Daily Multiple Vitamin) 1 Each Tablet 1 TAB PO DAILY, TAB Patient Instructions Goal/Follow Up Appt: 1. MEET WITH ANKUR AT [facility] IMMEDIATELY AFTER YOUR DISCHARGE FROM HOSPITAL. THEY ARE PART OF THE ADDICTIONS TREATMENT TEAM AT [facility]. 2. YOU HAVE AN APPOINTMENT WITH DR SÁNCHEZ ON TUESDAY AT 11AM. Patient Instructions: YOU MUST KEEP ALL APPOINTMENTS. ALCOHOL WITHDRAWAL CAN POSE SIGNIFICANT RISKS TO YOUR HEALTH INCLUDING HALLUCINATIONS AND/OR SEIZURES. WITH THE APPROPRIATE MEDICATIONS AND MEDICAL CARE PROVIDED BY [facility], YOU WILL NOT BE IN MEDICAL DANGER. IT IS VERY IMPORTANT THAT YOU KEEP YOUR APPOINTMENTS SO WE CAN SEE IF ANY MEDICATION CHANGES NEED TO TAKE PLACE BEFORE THE WEEKEND. Return to The Hospital For: CONFUSION, HALLUCINATIONS Activity & Diet Discharge Diet: No Restrictions Activity as Tolerated: Yes (NO DRIVING) Orders-Post D/C & Referrals Pneu Vac Indicated: Yes Copy Copies To 1: JOHNATHAN SÁNCHEZ MD, JULIE A MD May 04, 2017 10:49
--- NOTE | 2017-05-04 10:50 | Short Stay Summary ---
HPI Attending Physician Johnathan Sánchez MD PCP Shakira David MD Consult Date of Admission May 03, 2017 at 19:22 Home Medications Home Medications Reviewed patient Home Medication Reconciliation Form Allergies Coded Allergies: NKANo Known Allergies (Verified Allergy, Unknown, 11/21/06) No Known Drug Allergies (Unverified , 04/21/09) GOX-Ozqsqn-Cdixbe Hx Patient Social History Alcohol Use: Regular Use Recreational Drug Use: No Smoking Status: Current Everyday Smoker Type Used: Cigarettes 2nd Hand Smoke Exposure: Yes Recent Foreign Travel: No Contact w/other who traveled: No Recent Hopitalizations: No Recent Infectious Disease Expo: No Physical Abuse Screen: No Sexual Abuse: No Family Medical History Significant Family History: No Pertinent Family Hx Physical Exam-([facility]) Physical Exam Vital Signs VS - Last 72 Hours, by Label 05/03/17 05/03/17 05/03/17 05/03/17 17:30 20:15 20:30 21:00 Temp 97.6 98.9 Pulse 122 86 90 88 Resp 18 14 16 B/P (MAP) 130/76 102/67 103/56 Pulse Ox 96 98 98 98 O2 Delivery Nasal Cannula Nasal Cannula Nasal Cannula O2 Flow Rate 2.00 2.00 2.00 05/03/17 05/03/17 05/03/17 05/03/17 21:18 21:30 22:00 23:00 Pulse 88 80 82 B/P (MAP) 95/54 92/54 96/51 Pulse Ox 98 96 97 O2 Delivery Nasal Cannula Nasal Cannula Nasal Cannula Nasal Cannula O2 Flow Rate 2.00 2.00 2.00 2.00 05/04/17 05/04/17 05/04/17 05/04/17 00:00 01:00 04:10 04:20 Temp 97.9 Pulse 69 45 Resp 16 B/P (MAP) 88/53 Pulse Ox 99 99 O2 Delivery Nasal Cannula Nasal Cannula Nasal Cannula O2 Flow Rate 2.00 2.00 2.00 05/04/17 05/04/17 07:00 08:11 Temp 98.6 Pulse 54 62 Resp 12 B/P (MAP) 96/64 Pulse Ox 100 O2 Delivery Nasal Cannula O2 Flow Rate 2.00 Capillary Refill : Less Than 3 Seconds Clinical Quality Measures AMI/AHF: ASA po Prior to arrival: Yes DVT/VTE Risk/Contraindication: Risk Factor Score Per Nursin RFS Level Per Nursing on Admit: 2=Moderate JOHNATHAN SÁNCHEZ MD May 04, 2017 10:50
[2017-05-04 12:00] VITALS: BP 121/75
[2017-05-04 12:10] VITALS: BP 121/75
[2017-05-05] MEDS ORDERED: PANTOPRAZOLE 40 MG/10 ML (PROTONIX) VIAL IV SCH (09:00)
== END 2017-05-04 10:46 | disposition home or self-care (01) ==
LOC: EDUNIT# 17:29 → ER 17:30 → ICU 19:22 → UNDOADMOB 19:22 → ICU 20:30 → UNDODISOB 05-04 12:10
PROVIDERS: ADMIT Pediatrics; ATTEND Pediatrics
DX: F10.129 Alcohol abuse with intoxication, unspecified (principal); R00.0 Tachycardia, unspecified; R09.02 Hypoxemia; D72.829 Elevated white blood cell count, unspecified; R07.9 Chest pain, unspecified; F17.210 Nicotine dependence, cigarettes, uncomplicated; Y90.8 Blood alcohol level of 240 mg/100 ml or more
CPT/HCPCS: 36415; 71010; 80048; 80053; 80061; 80306; 80320; 81000; 82150; 82962; 83690; 83735; 83874; 84484; 85007; 85025; 85027; 85379; 85610; 85730; 93005; 93041; 96360; 99211

== ENCOUNTER 2017-10-25 23:20 | Emergency (ER) | payer SELFPAY ==
[~2017-10-25] VITALS: Ht 167.6 cm; Wt 97.5 kg
[~2017-10-25 23:20] MED LIST changes: +ASPI325T32 PO; +FOLI1TAB24 PO; +LORA-405 PO; -METO-270 PO; +METO-387 PO; +MULT-35 PO; +THIA100T12 PO
--- OUTSIDE RECORDS SUMMARY | 2017-10-25 23:28 | XMS REPORT | Continuity of Care Document ---
Author Author [employer] Organization [employer] Address Unknown Phone Unavailable Care Team Providers Care Plant Taxonomist Name Role Phone [employer] Unavailable Unavailable Problems Medications Allergies, Adverse Reactions, Alerts Immunizations Results Vital Signs Encounters Procedures Plan of Care Social History Assessment and Plan Family History Value Date Source Advance Directives Order Name Results Value Date Source
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
[2017-10-25] MEDS ORDERED: ACHD5005 PO (23:59)
[2017-10-26] MEDS ORDERED: HYDROcodone/APAP 5 MG/325 MG (LORTAB) TAB PO ONE
[2017-10-26 00:30] VITALS: BP 133/75
--- NOTE | 2017-10-26 08:15 | Diagnostic Imaging Report ---
INDICATION: Right knee pain AP, oblique, and lateral views of the right knee are obtained. No fracture or acute bony abnormality is seen. There is no definite joint effusion. IMPRESSION: Negative right knee. Dictated by: Dictated on workstation # [id number]
== END 2017-10-26 00:30 | disposition home or self-care (01) ==
LOC: EDUNIT# 23:20 → ER 23:24
DX: M25.461 Effusion, right knee (principal); M25.561 Pain in right knee; Z87.442 Personal history of urinary calculi; Z87.39 Personal history of other diseases of the musculoskeletal system and connective tissue; Z79.82 Long term (current) use of aspirin; Z77.22 Contact with and (suspected) exposure to environmental tobacco smoke (acute) (chronic); Z86.718 Personal history of other venous thrombosis and embolism; W22.03XA Walked into furniture, initial encounter
CPT/HCPCS: 73562

== ENCOUNTER 2018-12-15 20:14 | Emergency (ER) | payer SELFPAY ==
[~2018-12-15] VITALS: Ht 167.6 cm; Wt 97.5 kg
[~2018-12-15 20:14] MED LIST changes: +ACHD5005 PO
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
--- NOTE | 2018-12-15 20:25 | NUR ---
ppd officer yadira here talking with patient.
[2018-12-15 20:27] LABS: HEMOGLOBIN 16.9 G/DL (13.3-17.7); MEAN PLATELET VOLUME 10.3 FL (7.4-10.4); RED CELL DISTRIBUTION WIDTH 12.8 % (10.0-14.5)
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
[2018-12-15] MEDS ORDERED: IOHEXOL 350 MG/ML 100 ML (OMNIPAQUE 350) VIAL IV ONE (20:30)
[2018-12-15] MEDS ORDERED: NS 100 ML (IVPB) BAG IV ONE (20:30)
[2018-12-15] MEDS ORDERED: CATHETER FLUSH 10 ML SYR IV PRN (20:30)
[2018-12-15] MEDS ORDERED: RECEIVED CONTRAST (Hold Metformin) IV SCH (20:30)
--- NOTE | 2018-12-15 20:35 | NUR ---
dr mann here seeing pt.
[2018-12-15 20:40] LABS: ALANINE AMINOTRANSFERASE 31 U/L (0-55); ALBUMIN 4.8 GM/DL (3.2-4.5); ALKALINE PHOSPHATASE 94 U/L (40-136); BILIRUBIN,DIRECT 0.2 MG/DL (0.0-0.3); BILIRUBIN,INDIRECT 0.2 MG/DL; BILIRUBIN,TOTAL 0.4 MG/DL (0.1-1.0); BUN/CREATININE RATIO 12; CALCIUM 8.9 MG/DL (8.5-10.1); CARBON DIOXIDE 20 MMOL/L (21-32); CHLORIDE 106 MMOL/L (98-107); CREATININE SERUM 1.02 MG/DL (0.60-1.30); GFR ESTIMATED > 60; GLUCOSE 105 MG/DL (70-105); POTASSIUM 3.7 MMOL/L (3.6-5.0); SODIUM 140 MMOL/L (135-145); TOTAL PROTEIN 7.5 GM/DL (6.4-8.2)
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
[2018-12-15] MEDS ORDERED: ceFAZolin INJECTION 1,000 MG in NS (IVPB) 50 ML IV ONE (20:45)
[2018-12-15] MEDS ORDERED: TETANUS,DIPTH,PERTUSS P/F (BOOSTRIX) 0.5 ML VIAL IM ONE (20:45)
[2018-12-15] MEDS ORDERED: NS IV 1000 ML 1,000 ML IV SCH (20:50)
[2018-12-15] MEDS ORDERED: SULF1TAB35 PO (21:12)
[2018-12-15 21:21] VITALS: BP 135/89
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
== END 2018-12-15 21:21 | disposition home or self-care (01) ==
LOC: EDUNIT# 20:14 → ER 20:15
DX: S31.139A Puncture wound of abdominal wall without foreign body, unspecified quadrant without penetration into peritoneal cavity, initial encounter (principal); F10.10 Alcohol abuse, uncomplicated; F17.210 Nicotine dependence, cigarettes, uncomplicated; Z88.8 Allergy status to other drugs, medicaments and biological substances; Z98.890 Other specified postprocedural states; Z87.42 Personal history of other diseases of the female genital tract; Z87.19 Personal history of other diseases of the digestive system; Z87.442 Personal history of urinary calculi; Z23 Encounter for immunization; X99.1XXA Assault by knife, initial encounter
CPT/HCPCS: 36415; 71045; 71260; 74177; 80048; 80076; 80320; 85027; 86850; 86900; 86901; 90471; 90715; 93041; 96365

== ENCOUNTER 2018-12-17 13:44 | Emergency (ER) | payer SELFPAY ==
[~2018-12-17] VITALS: Ht 175.3 cm; Wt 99.8 kg
[~2018-12-17 13:44] MED LIST changes: +SULF1TAB35 PO
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
[2018-12-17] MEDS ORDERED: SULF1TAB35 PO (14:27)
[2018-12-17 14:35] VITALS: BP 124/80
== END 2018-12-17 14:35 | disposition home or self-care (01) ==
LOC: EDUNIT# 13:44 → ER 13:45
DX: S31.139D Puncture wound of abdominal wall without foreign body, unspecified quadrant without penetration into peritoneal cavity, subsequent encounter (principal); F41.9 Anxiety disorder, unspecified; F17.210 Nicotine dependence, cigarettes, uncomplicated; Z88.6 Allergy status to analgesic agent; Z88.1 Allergy status to other antibiotic agents; Z87.442 Personal history of urinary calculi; Z87.19 Personal history of other diseases of the digestive system; X58.XXXD Exposure to other specified factors, subsequent encounter

== ENCOUNTER 2019-04-08 23:39 | Emergency (ER) | payer SELFPAY ==
[~2019-04-08] VITALS: Ht 175.3 cm; Wt 90.7 kg
[~2019-04-08 23:39] MED LIST changes: +NS IV 1000 ML 1,000 ML ONE
[2019-04-08] MEDS ORDERED: meTOprolol 5 MG/5 ML (LOPRESSOR) VIAL IV ONE (23:45)
[2019-04-08] MEDS ORDERED: ASPIRIN 81 MG CHEW (CHILDREN'S ASA) PO ONE (23:45)
--- NOTE | 2019-04-08 23:52 | ED Cardiac General ---
History of Present Illness General Chief Complaint: Cardiac/General Problems Stated Complaint: CHEST PAIN Source: patient, EMS, old records Exam Limitations: no limitations History of Present Illness Date Seen by Provider: Apr 08, 2019 Time Seen by Provider: 23:38 Initial Comments Patient presents to ER by EMS with chief complaint of rapid heart rate starting about 45 minutes prior to arrival. He has a history of SVT. EMS gave him 6 mg of Adenocard en route after having a heart rate in the 230 range and failing Valsalva maneuvers. Patient tried Valsalva maneuvers at home himself. He is to follow-up with Dr. David but he's lost to follow-up. He was taking aspirin and metoprolol tartrate 25 mg twice a day however he's been out of the metoprolol for about a month and is been out of aspirin for several months. No history of coronary disease, heart attacks, familial history of heart attacks, hypertension. He does smoke about 2 packs of cigarettes per day and regularly drinks alcohol but denies recreational drug use. He does not have diabetes, hyperlipidemia. Most recently he attends with [facility]. Allergies and Home Medications Allergies Coded Allergies: acetaminophen (Verified Allergy, Mild, 04/08/19) naproxen (Verified Allergy, Mild, 04/08/19) NKANo Known Allergies (Verified Allergy, Unknown, 04/08/19) Home Medications Metoprolol Tartrate 25 Mg Tablet, 25 MG PO BID PRN for CHEST PAIN Prescribed by: VINCENZO OATES on 03/11/17 2316 Sulfamethoxazole/Trimethoprim 1 Each Tablet, 1 EACH PO BID Prescribed by: GEO GARCIA on 12/15/18 2112 Sulfamethoxazole/Trimethoprim 1 Each Tablet, 1 EACH PO BID Prescribed by: ROSALVA MANCIA on 12/17/18 1427 Patient Home Medication List Home Medication List Reviewed: Yes Review of Systems Review of Systems Constitutional: No chills, No fever EENTM: No Blurred Vision, No Double Vision Respiratory: Denies Cough, Denies Shortness of Air Cardiovascular: Denies Chest Pain, Denies Edema Gastrointestinal: Denies Constipated, Denies Diarrhea Past Jpjsgia-Mykvih-Ybomqr Hx Patient Social History Alcohol Use: Regular Use Alcohol Beverage of Choice: Beer Recreational Drug Use: No Smoking Status: Current Everyday Smoker Type Used: Cigarettes (2 ppd) 2nd Hand Smoke Exposure: Yes Recent Hopitalizations: No Immunizations Up To Date Tetanus Booster (TDap): Unknown PED Vaccines UTD: No Seasonal Allergies Seasonal Allergies: No Past Medical History Surgeries: Yes (right knee surgery, surgery on eye) Eye Surgery, Orthopedic Respiratory: No Currently Using CPAP: No Currently Using BIPAP: No Cardiac: Yes (SVT) Neurological: No Reproductive Disorders: No Sexually Transmitted Disease: No HIV/AIDS: No Genitourinary: Yes Kidney Stones Gastrointestinal: Yes Chronic Constipation Musculoskeletal: No Endocrine: No HEENT: No Eye Injury Loss of Vision: Denies Hearing Impairment: Denies Cancer: No Did You Recieve Any Treatments: No Psychosocial: Yes Anxiety Integumentary: No Blood Disorders: No Adverse Reaction/Blood Tranf: No Family Medical History No Pertinent Family Hx Physical Exam Vital Signs Vital Signs - First Documented 04/08/19 23:41 Pulse 130 Resp 14 B/P (MAP) 145/100 (115) Pulse Ox 100 O2 Delivery Room Air Capillary Refill : Height, Weight, BMI Height: 5'9.00" Weight: 220lbs. 0.0oz. 99.107449fs; 28.12 BMI Method:Stated General Appearance: Anxious, Mild Distress HEENT: PERRL/EOMI, TMs Normal, Pharynx Normal, Moist Mucous Membranes Neck: Full Range of Motion, Normal Inspection Respiratory: Chest Non Tender, Lungs Clear, Normal Breath Sounds, No Accessory Muscle Use, No Respiratory Distress Cardiovascular: No Edema, Normal Peripheral Pulses, Tachycardia Gastrointestinal: Normal Bowel Sounds, Non Tender, Soft Neurologic/Psychiatric: Alert, Oriented x3 Skin: Normal Color, Warm/Dry Progress/Results/Core Measures Results/Orders Lab Results Laboratory Tests Test 04/08/19 23:45 Range/Units White Blood Count 12.6 H 4.3-11.0 10^3/uL Red Blood Count 4.84 4.35-5.85 10^6/uL Hemoglobin 16.0 13.3-17.7 G/DL Hematocrit 44 40-54 % Mean Corpuscular Volume 92 80-99 FL Mean Corpuscular Hemoglobin 33 25-34 PG Mean Corpuscular Hemoglobin Concent 36 32-36 G/DL Red Cell Distribution Width 13.3 10.0-14.5 % Platelet Count 229 130-400 10^3/uL Mean Platelet Volume 10.5 H 7.4-10.4 FL Neutrophils (%) (Auto) 52 42-75 % Lymphocytes (%) (Auto) 38 12-44 % Monocytes (%) (Auto) 9 0-12 % Eosinophils (%) (Auto) 1 0-10 % Basophils (%) (Auto) 0 0-10 % Neutrophils # (Auto) 6.6 1.8-7.8 X 10^3 Lymphocytes # (Auto) 4.8 H 1.0-4.0 X 10^3 Monocytes # (Auto) 1.1 H 0.0-1.0 X 10^3 Eosinophils # (Auto) 0.2 0.0-0.3 10^3/uL Basophils # (Auto) 0.0 0.0-0.1 10^3/uL Prothrombin Time 13.2 12.2-14.7 SEC INR Comment 1.0 0.8-1.4 Activated Partial Thromboplast Time 32 24-35 SEC Sodium Level 138 135-145 MMOL/L Potassium Level 3.6 3.6-5.0 MMOL/L Chloride Level 104 98-107 MMOL/L Carbon Dioxide Level 18 L 21-32 MMOL/L Anion Gap 16 H 5-14 MMOL/L Blood Urea Nitrogen 12 7-18 MG/DL Creatinine 1.02 0.60-1.30 MG/DL Estimat Glomerular Filtration Rate > 60 BUN/Creatinine Ratio 12 Glucose Level 98 70-105 MG/DL Calcium Level 8.7 8.5-10.1 MG/DL Corrected Calcium 8.3 L 8.5-10.1 MG/DL Magnesium Level 2.0 1.8-2.4 MG/DL Total Bilirubin 0.4 0.1-1.0 MG/DL Aspartate Amino Transf (AST/SGOT) 29 5-34 U/L Alanine Aminotransferase (ALT/SGPT) 38 0-55 U/L Alkaline Phosphatase 90 40-136 U/L Myoglobin 78.6 10.0-92.0 NG/ML Troponin I < 0.028 <0.028 NG/ML Total Protein 6.9 6.4-8.2 GM/DL Albumin 4.5 3.2-4.5 GM/DL My Orders Orders - GEO GARCIA Ns Iv 1000 Ml (Sodium Chloride 0.9%) (04/08/19 23:39) Cbc With Automated Diff (04/08/19 23:44) Magnesium (04/08/19 23:44) Chest 1 View, Ap/Pa Only (04/08/19 23:44) Ekg Tracing (04/08/19 23:44) Cardiac Profile 1 (04/08/19 23:44) Comprehensive Metabolic Panel (04/08/19 23:44) Myoglobin Serum (04/08/19 23:44) Protime With Inr (04/08/19 23:44) Partial Thromboplastin Time (04/08/19 23:44) O2 (04/08/19 23:44) Monitor-Rhythm Ecg Trace Only (04/08/19 23:44) Lipid Panel (04/09/19 06:00) Ed Iv/Invasive Line Start (04/08/19 23:44) Aspirin Chewable Tablet (Baby Aspirin Ch (04/08/19 23:45) Metoprolol Tartrate Injection (Lopressor (04/08/19 23:45) Metoprolol Succinate (Xl) Tab (Toprol Xl (04/09/19 00:00) Medications Given in ED Current Medications Medications Dose Ordered Sig/Bartolome Route Start Time Stop Time Status Last Admin Dose Admin Aspirin 324 mg ONCE ONCE PO 04/08/19 23:45 04/08/19 23:47 DC 04/08/19 23:56 324 MG Metoprolol Tartrate 5 mg ONCE ONCE IV 04/08/19 23:45 04/08/19 23:47 DC 04/08/19 23:55 5 MG Sodium Chloride 1,000 ml @ STK-MED ONCE .ROUTE 04/08/19 23:39 04/08/19 23:44 DC 04/08/19 23:46 0 MLS/HR Vital Signs/I&O 04/08/19 04/08/19 23:41 23:41 Pulse 130 Resp 14 B/P (MAP) 145/100 (115) Pulse Ox 100 100 O2 Delivery Room Air Room Air 04/09/19 00:00 Intake Total 400 ml Balance 400 ml Progress Progress Note #1: Time: 23:50 Progress Note Patient presents with a heart rate in the 130s. We'll give him 5 of metoprolol every 10-15 minutes until he get his heart rate under better control with a max dose of 15 mg. Obtain basic labs looking for evidence of cardiac strain. EKG shows tachycardia 120, sinus. Progress Note #2: Time: 00:41 Progress Note After 15 mg of Toprol-XL and 5 mg IV the patient's heart rate came down to about 105. His blood pressure has stayed steady in the 120s over 80s. Blood work otherwise is okay. No history of coronary disease and is not had any chest pain. He is feeling much better so were going to provide him with a prescription for some metoprolol and let him go home. Initial ECG Impression Date: Apr 08, 2019 Initial ECG Impression Time: 23:45 Initial ECG Rate: 119 Initial ECG Rhythm: S.Tach Initial ECG Intervals: Normal Initial ECG Impression: Nonspecific Changes Comment Sinus tachycardia without significant ST-T wave elevation or depression. Diagnostic Imaging Diagonstic Imaging: Xray Plain Films/CT/US/NM/MRI: chest (1v) Comments No acute cardiopulmonary processes noted. Reviewed: Reviewed by Me Departure Impression Primary Impression: SVT (supraventricular tachycardia) Disposition: 01 HOME, SELF-CARE Condition: Improved Departure-Patient Inst. Decision time for Depature: 00:59 Referrals: [facility] [place] (PCP/Family) Primary Care Physician Patient Instructions: Paroxysmal Supraventricular Tachycardia (DC) Add. Discharge Instructions: Please resume your metoprolol 25 mg twice a day starting this morning. Follow-up with your primary care doctor this week. All discharge instructions reviewed with patient and/or family. Voiced understanding. Scripts Metoprolol Tartrate (Metoprolol Tartrate) 25 Mg Tablet 25 MG PO BID, #60 TAB 0 Refills Prov: GEO GARCIA 04/09/19 GEO GARCIA Apr 08, 2019 23:52
--- NOTE | 2019-04-08 23:56 | NUR ---
BP 127/94, P-112 SPo2-98% prior to IV metoprolol administration. BP 126/83, P-105, SPo2-99% prior to PO metoprolol administration.
[2019-04-08 23:59] LABS: BASOPHILS % (AUTO) 0 % (0-10); EOSINOPHILS # (AUTO) 0.2 10^3/uL (0.0-0.3); EOSINOPHILS % (AUTO) 1 % (0-10); HEMATOCRIT 44 % (40-54); LYMPHOCYTES # (AUTO) 4.8 X 10^3 (1.0-4.0); LYMPHOCYTES % (AUTO) 38 % (12-44); MEAN CORPUSCULAR HEMOGLOBIN 33 PG (25-34); MEAN CORPUSCULAR HGB CONC 36 G/DL (32-36); MEAN CORPUSCULAR VOLUME 92 FL (80-99); MEAN PLATELET VOLUME 10.5 FL (7.4-10.4); MONOCYTES # (AUTO) 1.1 X 10^3 (0.0-1.0); MONOCYTES % (AUTO) 9 % (0-12); NEUTROPHILS # (AUTO) 6.6 X 10^3 (1.8-7.8); NEUTROPHILS % (AUTO) 52 % (42-75); PLATELET COUNT 229 10^3/uL (130-400); RED CELL DISTRIBUTION WIDTH 13.3 % (10.0-14.5); WHITE BLOOD COUNT 12.6 10^3/uL (4.3-11.0)
[2019-04-09] MEDS ORDERED: meTOproloL SUCCINATE 50 MG (TOPROL XL) TAB PO SCH
[2019-04-09 00:25] LABS: ALANINE AMINOTRANSFERASE 38 U/L (0-55); ALBUMIN 4.5 GM/DL (3.2-4.5); ALKALINE PHOSPHATASE 90 U/L (40-136); BILIRUBIN,TOTAL 0.4 MG/DL (0.1-1.0); BUN/CREATININE RATIO 12; CALCIUM 8.7 MG/DL (8.5-10.1); CARBON DIOXIDE 18 MMOL/L (21-32); CHLORIDE 104 MMOL/L (98-107); CREATININE SERUM 1.02 MG/DL (0.60-1.30); GFR ESTIMATED > 60; GLUCOSE 98 MG/DL (70-105); POTASSIUM 3.6 MMOL/L (3.6-5.0); SODIUM 138 MMOL/L (135-145); TOTAL PROTEIN 6.9 GM/DL (6.4-8.2)
[2019-04-09 00:29] LABS: PROTHROMBIN TIME PATIENT 13.2 SEC (12.2-14.7)
--- NOTE | 2019-04-09 00:59 | NUR ---
Report given to Mitra LAUREANO.
[2019-04-09] MEDS ORDERED: METO-333 PO (01:00)
[2019-04-09 01:28] VITALS: BP 126/83
--- NOTE | 2019-04-09 05:38 | Diagnostic Imaging Report ---
Clinical indication: Patient felt the heart was racing. Patient has history of SVT. Exam: Portable chest x-ray upright view. Comparisons: Chest x-ray dated 12/15/2018. Findings: Lungs/pleura: Lungs are clear. There is no pneumothorax. There is no pleural effusion. Mediastinum: Unremarkable. Pulmonary vasculature: Unremarkable. Heart: Unremarkable. Bones/extrathoracic soft tissue: Unremarkable. Impression: There is no radiographic evidence of acute cardiopulmonary process. Dictated by: Dictated on workstation # [id number]
== END 2019-04-09 01:31 | disposition home or self-care (01) ==
LOC: EDUNIT# 23:39 → ER 23:40
DX: I47.1 Supraventricular tachycardia (principal); F17.210 Nicotine dependence, cigarettes, uncomplicated; Z88.8 Allergy status to other drugs, medicaments and biological substances; Z88.1 Allergy status to other antibiotic agents; Z87.442 Personal history of urinary calculi; Z87.19 Personal history of other diseases of the digestive system
CPT/HCPCS: 36415; 71045; 80053; 83735; 83874; 84484; 85025; 85610; 85730; 93005; 93041; 96361; 96374

== ENCOUNTER 2019-04-23 14:28 | Emergency (ER) | payer SELFPAY ==
[~2019-04-23] VITALS: Ht 175.3 cm; Wt 90.7 kg
[~2019-04-23 14:28] MED LIST changes: -NS IV 1000 ML 1,000 ML ONE
--- NOTE | 2019-04-23 14:55 | ED Chest Pain ---
General Chief Complaint: Chest Pain Stated Complaint: CHF;HYPOXIA History of Present Illness Date Seen by Provider: Apr 23, 2019 Time Seen by Provider: 14:40 Initial Comments 38-year-old male presents for chest pain. He has a history of SVT with treatment via EMS with [facility] approx 2 weeks ago. He reports the pain began at 0900 this morning. It has been lasting 5-10 seconds, with 7-8 episodes since this morning. He is supposed to be taking aspirin daily, however he doesn't take this. He is on labetalol for blood pressure. He denies any shortness of breath, nausea, vomiting, or diaphoresis when he cut the chest pain. Timing/Duration: other (6-8 hours) Severity/Quality: mild Location: substernal Radiation: no radiation Activities at Onset: none Prior CP/Workup: angina, echocardiography, other (SVT) ASA po COURT DEPUTY: No NTG SL COURT DEPUTY: No Associated Symptoms: denies symptoms Allergies and Home Medications Allergies Coded Allergies: acetaminophen (Verified Allergy, Mild, 04/08/19) naproxen (Verified Allergy, Mild, 04/08/19) NKANo Known Allergies (Verified Allergy, Unknown, 04/08/19) Home Medications Metoprolol Tartrate 25 Mg Tablet, 25 MG PO BID PRN for CHEST PAIN Prescribed by: VINCENZO OATES on 03/11/17 2316 Metoprolol Tartrate 25 Mg Tablet, 25 MG PO BID Prescribed by: GEO GARCIA on 04/09/19 0100 Nitroglycerin 0.4 Mg Tab.subl, 0.4 MG SL UD PRN for CHEST PAIN Prescribed by: ROSALVA MANCIA on 04/23/19 1624 Patient Home Medication List Home Medication List Reviewed: Yes Review of Systems Review of Systems Constitutional: no symptoms reported, see HPI Cardiovascular: See HPI, Chest Pain Gastrointestinal: See HPI; Denies Abdominal Pain, Denies Diarrhea, Denies Nausea, Denies Poor Fluid Intake, Denies Vomiting All Other Systems Reviewed Negative Unless Noted: Yes Past Zevcdbb-Ncnrha-Lvzizu Hx Past Med/Social Hx: Reviewed Nursing Past Med/Soc Hx Patient Social History Alcohol Use: Occasionally Uses Number of Drinks Today: AA Alcohol Beverage of Choice: Beer Recreational Drug Use: Yes (12PK A DAY) Smoking Status: Current Everyday Smoker Type Used: Cigarettes 2nd Hand Smoke Exposure: Yes Recent Hopitalizations: No Immunizations Up To Date Tetanus Booster (TDap): Unknown PED Vaccines UTD: No Seasonal Allergies Seasonal Allergies: No Past Medical History Surgeries: Yes (right knee surgery, surgery on eye) Eye Surgery, Orthopedic Respiratory: No Currently Using CPAP: No Currently Using BIPAP: No Cardiac: Yes (SVT) Neurological: No Reproductive Disorders: No Sexually Transmitted Disease: No HIV/AIDS: No Genitourinary: Yes Kidney Stones Gastrointestinal: Yes Chronic Constipation Musculoskeletal: No Endocrine: No HEENT: No Eye Injury Loss of Vision: Denies Hearing Impairment: Denies Cancer: No Did You Recieve Any Treatments: No Psychosocial: Yes Anxiety Integumentary: No Blood Disorders: No Adverse Reaction/Blood Tranf: No Family Medical History No Pertinent Family Hx Physical Exam Vital Signs Vital Signs - First Documented 04/23/19 14:28 Pulse 75 Resp 18 B/P (MAP) 129/90 (103) Pulse Ox 98 O2 Delivery Room Air Capillary Refill : Height, Weight, BMI Height: 5'9.00" Weight: 200lbs. 0.0oz. 90.195731ei; 28.12 BMI Method:Stated General Appearance: No Apparent Distress, WD/WN HEENT: PERRL/EOMI, TMs Normal, Normal ENT Inspection, Pharynx Normal Neck: Full Range of Motion, Normal Inspection, Non Tender, Supple Respiratory: Chest Non Tender, Lungs Clear, Normal Breath Sounds Cardiovascular: Regular Rate, Rhythm, No Murmur, Normal Peripheral Pulses Gastrointestinal: Normal Bowel Sounds, Non Tender, Soft Extremity: Normal Capillary Refill, Normal Inspection, Normal Range of Motion, No Calf Tenderness Neurologic/Psychiatric: Alert, Oriented x3, No Motor/Sensory Deficits, Normal Mood/Affect Skin: Normal Color, Warm/Dry Lymphatic: No Adenopathy Progress/Results/Core Measures Results/Orders Lab Results Laboratory Tests Test 04/23/19 14:35 Range/Units White Blood Count 8.1 4.3-11.0 10^3/uL Red Blood Count 4.68 4.35-5.85 10^6/uL Hemoglobin 15.3 13.3-17.7 G/DL Hematocrit 44 40-54 % Mean Corpuscular Volume 93 80-99 FL Mean Corpuscular Hemoglobin 33 25-34 PG Mean Corpuscular Hemoglobin Concent 35 32-36 G/DL Red Cell Distribution Width 12.8 10.0-14.5 % Platelet Count 209 130-400 10^3/uL Mean Platelet Volume 10.9 H 7.4-10.4 FL Neutrophils (%) (Auto) 48 42-75 % Lymphocytes (%) (Auto) 39 12-44 % Monocytes (%) (Auto) 10 0-12 % Eosinophils (%) (Auto) 3 0-10 % Basophils (%) (Auto) 0 0-10 % Neutrophils # (Auto) 3.9 1.8-7.8 X 10^3 Lymphocytes # (Auto) 3.2 1.0-4.0 X 10^3 Monocytes # (Auto) 0.8 0.0-1.0 X 10^3 Eosinophils # (Auto) 0.2 0.0-0.3 10^3/uL Basophils # (Auto) 0.0 0.0-0.1 10^3/uL Sodium Level 142 135-145 MMOL/L Potassium Level 4.2 3.6-5.0 MMOL/L Chloride Level 109 H 98-107 MMOL/L Carbon Dioxide Level 25 21-32 MMOL/L Anion Gap 8 5-14 MMOL/L Blood Urea Nitrogen 15 7-18 MG/DL Creatinine 1.03 0.60-1.30 MG/DL Estimat Glomerular Filtration Rate > 60 BUN/Creatinine Ratio 15 Glucose Level 96 70-105 MG/DL Calcium Level 9.4 8.5-10.1 MG/DL Corrected Calcium 9.1 8.5-10.1 MG/DL Magnesium Level 1.8 1.8-2.4 MG/DL Total Bilirubin 0.4 0.1-1.0 MG/DL Aspartate Amino Transf (AST/SGOT) 19 5-34 U/L Alanine Aminotransferase (ALT/SGPT) 30 0-55 U/L Alkaline Phosphatase 73 40-136 U/L Myoglobin 40.7 10.0-92.0 NG/ML Troponin I < 0.028 <0.028 NG/ML B-Type Natriuretic Peptide 65.7 <100.0 PG/ML Total Protein 6.8 6.4-8.2 GM/DL Albumin 4.4 3.2-4.5 GM/DL Amylase Level 62 25-125 U/L Serum Alcohol < 10 <10 MG/DL Vital Signs/I&O 04/23/19 14:28 Pulse 75 Resp 18 B/P (MAP) 129/90 (103) Pulse Ox 98 O2 Delivery Room Air Progress Progress Note : Time: 14:40 Progress Note Seen and evaluated, will obtain EKG, chest x-ray, labs and aspirin 324 mg orally. 1515 labs essentially normal, awaiting UA. Patient reports no further chest pain. 1615 all were Negative further chest pain. Recommended follow-up with cardiology appointment made for April 28. Testing isn't taking an aspirin daily and decreasing cigarette usage. Discharge instructions and return precautions reviewed with the patient. All questions answered. Initial ECG Impression Date: Apr 23, 2019 Initial ECG Impression Time: 14:30 Initial ECG Rate: 78 Initial ECG Rhythm: Normal Sinus Initial ECG Intervals: Normal Initial ECG Intervals TX 208, QRSD 104, QT 364, QTc 415; [place] P 55; QRS 53; T 20 Initial ECG Impression: Normal Initial ECG Comparisson: Unchanged Comment Reviewed with Dr. Lynn, concurred with interpretation. Diagnostic Imaging Diagonstic Imaging: Xray Plain Films/CT/US/NM/MRI: chest Comments [facility], [place] NAME: CHARITY NEAL [facility] REC#: [id number] PT STATUS: REG ER : 1980 PHYSICIAN: ROSALVA MANCIA ADMIT DATE: 04/23/19/ER Draft Date of Exam:04/23/19 CHEST 1 VIEW, AP/PA ONLY PATIENT HISTORY: Chest pain. TECHNIQUE: Single frontal view of the chest. COMPARISON: 04/08/2019. FINDINGS: The lung volumes are normal. No focal consolidation is seen. No large pleural effusion or pneumothorax is seen. The cardiomediastinal silhouette is normal in size and contour. No acute osseous abnormality is seen. IMPRESSION: No acute pulmonary abnormality seen. Dictated on workstation # [id number] Dict: 04/23/19 1510 Trans: 04/23/19 1512 [id number] Interpreted by: ANN CRANDALL MD Electronically signed by: Reviewed: Reviewed by Me Departure Impression Primary Impression: Stable angina Disposition: 01 HOME, SELF-CARE Condition: Improved Departure-Patient Inst. Decision time for Depature: 16:15 Referrals: [facility] [place] (PCP/Family) Primary Care Physician Patient Instructions: Angina (DC) Add. Discharge Instructions: You are scheduled to see Dr. Hsu on May 08 at 2:00 pm. Bring all medications, over the counter and prescription in original bottles, bring insurance and co-pay. 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 Office is [address] [facility], [place]. Take Aspirin 81 mg daily. Continue your home medications. Decrease smoking, try to cut 1-2 cigarettes every few days. Use Nitroglycerin at onset of Chest Pain, may repeat 2 times, if symptoms don't improve, then return to Emergency Dept. Eat a low fat, low sodium diet. Walk 10-15 min every day. Increase water intake. All discharge instructions reviewed with patient and/or family. Voiced understanding. Scripts Nitroglycerin (Nitroglycerin) 0.4 Mg Tab.subl 0.4 MG SL UD PRN for CHEST PAIN, #20 TAB 0 Refills Prov: ROSALVA MANCIA 04/23/19 Copy Copies To 1: Tricia RODRIGUEZ MD, AMY ARNP Apr 23, 2019 14:55
[2019-04-23 14:57] LABS: BASOPHILS % (AUTO) 0 % (0-10); EOSINOPHILS # (AUTO) 0.2 10^3/uL (0.0-0.3); EOSINOPHILS % (AUTO) 3 % (0-10); HEMATOCRIT 44 % (40-54); HEMOGLOBIN 15.3 G/DL (13.3-17.7); LYMPHOCYTES # (AUTO) 3.2 X 10^3 (1.0-4.0); LYMPHOCYTES % (AUTO) 39 % (12-44); MEAN CORPUSCULAR HEMOGLOBIN 33 PG (25-34); MEAN CORPUSCULAR HGB CONC 35 G/DL (32-36); MEAN CORPUSCULAR VOLUME 93 FL (80-99); MEAN PLATELET VOLUME 10.9 FL (7.4-10.4); MONOCYTES # (AUTO) 0.8 X 10^3 (0.0-1.0); MONOCYTES % (AUTO) 10 % (0-12); NEUTROPHILS # (AUTO) 3.9 X 10^3 (1.8-7.8); NEUTROPHILS % (AUTO) 48 % (42-75); PLATELET COUNT 209 10^3/uL (130-400); RED CELL DISTRIBUTION WIDTH 12.8 % (10.0-14.5); WHITE BLOOD COUNT 8.1 10^3/uL (4.3-11.0)
[2019-04-23] MEDS ORDERED: ASPIRIN 81 MG CHEW (CHILDREN'S ASA) PO ONE (15:00)
--- NOTE | 2019-04-23 15:12 | Diagnostic Imaging Report ---
PATIENT HISTORY: Chest pain. TECHNIQUE: Single frontal view of the chest. COMPARISON: 04/08/2019. FINDINGS: The lung volumes are normal. No focal consolidation is seen. No large pleural effusion or pneumothorax is seen. The cardiomediastinal silhouette is normal in size and contour. No acute osseous abnormality is seen. IMPRESSION: No acute pulmonary abnormality seen. Dictated by: Dictated on workstation # [id number]
[2019-04-23 15:14] LABS: ALANINE AMINOTRANSFERASE 30 U/L (0-55); ALBUMIN 4.4 GM/DL (3.2-4.5); ALKALINE PHOSPHATASE 73 U/L (40-136); AMYLASE 62 U/L (25-125); BILIRUBIN,TOTAL 0.4 MG/DL (0.1-1.0); BUN/CREATININE RATIO 15; CALCIUM 9.4 MG/DL (8.5-10.1); CARBON DIOXIDE 25 MMOL/L (21-32); CHLORIDE 109 MMOL/L (98-107); CREATININE SERUM 1.03 MG/DL (0.60-1.30); GFR ESTIMATED > 60; GLUCOSE 96 MG/DL (70-105); MAGNESIUM 1.8 MG/DL (1.8-2.4); POTASSIUM 4.2 MMOL/L (3.6-5.0); SODIUM 142 MMOL/L (135-145); TOTAL PROTEIN 6.8 GM/DL (6.4-8.2)
[2019-04-23] MEDS: NS IV 1000 ML 1,000 ML IV SCH ×2 (15:33→16:23)
[2019-04-23 15:48] LABS: BILIRUBIN,URINE NEGATIVE (NEGATIVE); CLARITY,URINE CLEAR; COLOR,URINE YELLOW; GLUCOSE, URINE (UA) NEGATIVE (NEGATIVE); KETONES,URINE NEGATIVE (NEGATIVE); LEUKOCYTE ESTERASE ,URINE NEGATIVE (NEGATIVE); NITRITE,URINE NEGATIVE (NEGATIVE); PH,URINE 6 (5-9); PROTEIN,URINE NEGATIVE (NEGATIVE); UROBILINOGEN,URINE NORMAL (NORMAL)
[2019-04-23 16:02] LABS: BACTERIA,URINE NEGATIVE /HPF; SQUAMOUS EPITHELIAL CELL,UR 0-2 /HPF
[2019-04-23 16:04] LABS: AMPHETAMINE SCREEN, URINE NEGATIVE (NEGATIVE); BARBITURATE SCREEN URINE NEGATIVE (NEGATIVE); BENZODIAZEPINES SCREEN URINE NEGATIVE (NEGATIVE); CANNABINOID SCREEN, URINE NEGATIVE (NEGATIVE); COCAINE SCREEN URINE NEGATIVE (NEGATIVE); METHADONE STAT NEGATIVE (NEGATIVE); METHAMPHETAMINE SCREEN URINE S NEGATIVE (NEGATIVE); OPIATE SCREEN URINE NEGATIVE (NEGATIVE); OXYCODONE STAT NEGATIVE (NEGATIVE); PROPOXYPHENE STAT NEGATIVE (NEGATIVE); TRICYCLIC ANTIDEPRESSANTS SCRE NEGATIVE (NEGATIVE)
[2019-04-23 16:04] LABS: PROTHROMBIN TIME PATIENT 13.6 SEC (12.2-14.7)
[2019-04-23] MEDS ORDERED: NITR0.4T39 SL (16:24)
[2019-04-23 16:46] VITALS: BP 126/78
== END 2019-04-23 16:46 | disposition home or self-care (01) ==
LOC: EDUNIT# 14:28 → ER 14:29 → UNDOADMIN 14:44 → 4TH 14:44 → ER 16:46
DX: I20.8 Other forms of angina pectoris (principal); F41.9 Anxiety disorder, unspecified; F17.210 Nicotine dependence, cigarettes, uncomplicated; Z87.442 Personal history of urinary calculi; Z88.5 Allergy status to narcotic agent; Z88.6 Allergy status to analgesic agent; Z91.14 Patient's other noncompliance with medication regimen
CPT/HCPCS: 36415; 71045; 80053; 80306; 80320; 81000; 82150; 83735; 83874; 83880; 84484; 85025; 85610; 85730; 93005; 93041

== ENCOUNTER 2019-05-29 15:45 | Emergency (ER) | payer SELFPAY ==
[~2019-05-29] VITALS: Ht 175.3 cm; Wt 90.7 kg
[~2019-05-29 15:45] MED LIST changes: +NITR0.4T39 SL
[2019-05-29] MEDS ORDERED: LIDOCAINE 1% INJ 20 ML 20 ML VIAL INJ ONE (16:00)
--- NOTE | 2019-05-29 16:07 | ED Integumentary General ---
General Chief Complaint: Laceration Stated Complaint: L FOOT LAC Nursing Triage Note: Patient brought to ER via [facility] with complaint of left foot laceration. Patient states he was climbing in his truck and cut his left foot on yaya metal. Patient ambulatory to room. Source: patient Exam Limitations: no limitations History of Present Illness Date Seen by Provider: May 29, 2019 Time Seen by Provider: 15:50 Initial Comments 38-year-old male who was brought to the emergency room by [facility] with complaints of laceration to his dorsal surface of his left foot. He reports that he was climbing into his truck when he cut his left foot on a yaya piece of metal. The patient did ambulate to the room from the ambulance bay. He has a 3 similar laceration to the dorsal surface of his left foot. He reports that he isn't up-to-date on his tetanus vaccine. Timing/Duration: just prior to arrival Associated Symptoms: denies symptoms Allergies and Home Medications Allergies Coded Allergies: acetaminophen (Verified Allergy, Mild, 04/08/19) naproxen (Verified Allergy, Mild, 04/08/19) NKANo Known Allergies (Verified Allergy, Unknown, 04/08/19) Home Medications Metoprolol Tartrate 25 Mg Tablet, 25 MG PO BID PRN for CHEST PAIN Prescribed by: VINCENZO OATES on 03/11/17 2316 Metoprolol Tartrate 25 Mg Tablet, 25 MG PO BID Prescribed by: GEO GARCIA on 04/09/19 0100 Nitroglycerin 0.4 Mg Tab.subl, 0.4 MG SL UD PRN for CHEST PAIN Prescribed by: ROSALVA MANCIA on 04/23/19 1624 Patient Home Medication List Home Medication List Reviewed: Yes Review of Systems Review of Systems Constitutional: see HPI; No chills, No fever Skin: see HPI, other (laceration to the dorsal surface of the left foot) All Other Systems Reviewed Negative Unless Noted: Yes Past Uqovuiw-Tzgqhw-Xesoow Hx Past Med/Social Hx: Reviewed Nursing Past Med/Soc Hx Patient Social History Alcohol Use: Regular Use Number of Drinks Today: 4 Alcohol Beverage of Choice: Beer, Other Recreational Drug Use: No Smoking Status: Current Everyday Smoker Type Used: Cigarettes 2nd Hand Smoke Exposure: Yes Recent Foreign Travel: No Contact w/Someone Who Travel: No Recent Infectious Disease Expo: No Recent Hopitalizations: No Physical Abuse: No Sexual Abuse: No Mistreated: No Fear: No Immunizations Up To Date Tetanus Booster (TDap): Less than 5yrs PED Vaccines UTD: No Seasonal Allergies Seasonal Allergies: No Past Medical History Surgeries: Yes (right knee surgery, surgery on eye) Eye Surgery, Orthopedic Respiratory: No Currently Using CPAP: No Currently Using BIPAP: No Cardiac: Yes (SVT) Neurological: No Reproductive Disorders: No Sexually Transmitted Disease: No HIV/AIDS: No Genitourinary: Yes Kidney Stones Gastrointestinal: Yes Chronic Constipation Musculoskeletal: No Endocrine: No HEENT: No Eye Injury Loss of Vision: Denies Hearing Impairment: Denies Cancer: No Did You Recieve Any Treatments: No Psychosocial: Yes Anxiety Integumentary: No Blood Disorders: No Adverse Reaction/Blood Tranf: No Family Medical History Reviewed Nursing Family Hx No Pertinent Family Hx Physical Exam Vital Signs Vital Signs - First Documented 05/29/19 15:49 Temp 99.7 Pulse 105 Resp 18 B/P (MAP) 147/106 (120) Pulse Ox 95 O2 Delivery Room Air Capillary Refill : Less Than 3 Seconds General Appearance: WD/WN, no apparent distress Cardiovascular: normal peripheral pulses, regular rate, rhythm, no edema, no gallop, no JVD, no murmur Respiratory: chest non-tender, lungs clear, normal breath sounds, no respiratory distress, no accessory muscle use Skin: normal color, warm/dry, other (3 cm laceration to the dorsal surface of the left foot.) Procedures/Interventions Wound Location: Lower Extremities Other Wound Location Dorsal surface of the left foot Wound Length (cm): 3 Wound's Depth, Shape: superficial, linear Irrigated w/ Saline (ccs): 100 Betadine Prep?: Yes Anesthesia: 1% Lidocaine Volume Anesthetic (ccs): 2 Wound Debrided: minimal Suture: Prolene Suture Size: 4-0 Number of Sutures: 4 Progress The wound was thoroughly cleaned and irrigated with normal saline with Betasept. The wound was anesthetized size with approximately 2 ML's of lidocaine without epinephrine. Wound was approximated and closed with 4 simple interrupted sutures of 4-0 Prolene. Progress/Results/Core Measures Results/Orders My Orders Orders - RAIMUNDO CUEVAS Lidocaine 1% Inj 20 Ml (Xylocaine 1% Inj (05/29/19 16:00) Medications Given in ED Vital Signs/I&O 05/29/19 05/29/19 15:49 16:20 Temp 99.7 99.7 Pulse 105 105 Resp 18 18 B/P (MAP) 147/106 (120) 147/106 (120) Pulse Ox 95 95 O2 Delivery Room Air Room Air Blood Pressure Mean: 120 Departure Impression Primary Impression: Laceration Disposition: 01 HOME, SELF-CARE Condition: Stable/Unchanged Departure-Patient Inst. Decision time for Depature: 16:12 Referrals: [facility] [place] (PCP/Family) Primary Care Physician Patient Instructions: Laceration Repair With Stitches (DC) Add. Discharge Instructions: Watch for signs of infection such as increased redness, swelling, drainage, pain. Return back to the emergency room in 7 days to have the sutures removed. You may use triple antibiotic ointment twice a day to the laceration. Follow-up with primary care as needed. Return back to the emergency room for worsening symptoms or concerns as needed. All discharge instructions reviewed with patient and/or family. Voiced understanding. RAIMUNDO CUEVAS May 29, 2019 16:07
[2019-05-29 16:20] VITALS: BP 147/106
== END 2019-05-29 16:22 | disposition home or self-care (01) ==
LOC: EDUNIT# 15:45 → ER 15:46
DX: S91.312A Laceration without foreign body, left foot, initial encounter (principal); F41.9 Anxiety disorder, unspecified; F17.210 Nicotine dependence, cigarettes, uncomplicated; Z87.442 Personal history of urinary calculi; Z88.6 Allergy status to analgesic agent; W26.8XXA Contact with other sharp object(s), not elsewhere classified, initial encounter
CPT/HCPCS: 12002

== ENCOUNTER → 2019-06-20 | Outpatient (CLI) | payer SELFPAY | LOC: WOUNDCARE 12:16 | PROVIDERS: ATTEND Surgery | DX: L97.422 Non-pressure chronic ulcer of left heel and midfoot with fat layer exposed (principal); T81.31XA Disruption of external operation (surgical) wound, not elsewhere classified, initial encounter; T65.222A Toxic effect of tobacco cigarettes, intentional self-harm, initial encounter; F17.218 Nicotine dependence, cigarettes, with other nicotine-induced disorders | CPT/HCPCS: 11042 ==

== ENCOUNTER → 2019-06-27 | Outpatient (CLI) | payer SELFPAY | LOC: WOUNDCARE 14:43 | PROVIDERS: ATTEND Surgery | DX: L97.422 Non-pressure chronic ulcer of left heel and midfoot with fat layer exposed (principal); T81.31XA Disruption of external operation (surgical) wound, not elsewhere classified, initial encounter; T65.222A Toxic effect of tobacco cigarettes, intentional self-harm, initial encounter; F17.218 Nicotine dependence, cigarettes, with other nicotine-induced disorders; I96 Gangrene, not elsewhere classified | CPT/HCPCS: 99213 ==

== ENCOUNTER → 2019-07-03 | Outpatient (CLI) | payer OTHER | LOC: WOUNDCARE 14:51 | PROVIDERS: ATTEND Surgery | DX: L97.422 Non-pressure chronic ulcer of left heel and midfoot with fat layer exposed (principal); T81.31XA Disruption of external operation (surgical) wound, not elsewhere classified, initial encounter; T65.222A Toxic effect of tobacco cigarettes, intentional self-harm, initial encounter; F17.218 Nicotine dependence, cigarettes, with other nicotine-induced disorders; I96 Gangrene, not elsewhere classified | CPT/HCPCS: 99212 ==

== ENCOUNTER 2021-04-27 17:11 | Emergency (ER) | payer SELFPAY ==
[~2021-04-27] VITALS: Ht 175.3 cm; Wt 82.6 kg
[~2021-04-27 17:11] MED LIST changes: -FOLI1TAB24 PO; +FOLI1TAB33 PO; -METO-387 PO; +MTP25TSR PO
--- NOTE | 2021-04-27 18:50 | ED Respiratory ---
General Chief Complaint: Respiratory Problems Stated Complaint: SOA Nursing Triage Note: Stabbing "lung pain" bilaterally for 3 months. Last 3-4 days, no pain, but heavy pain around rib cage. Pt reports attempting to cut tree down and could no longer take the pressure. Source: patient Exam Limitations: no limitations History of Present Illness Date Seen by Provider: Apr 27, 2021 Time Seen by Provider: 18:31 Initial Comments Patient to the ER by private conveyance from home with chief complaint of bilateral lower rib tightness and pain for the past 3-4 months shortness of air wheezing and weight loss as well as hemoptysis. He is going through divorce. He said he smokes about 80 cigarettes a day and drinks alcohol from the moment he wakes up to the moment he passes out. No fevers or chills nausea or vomiting diarrhea or constipation. For the past 3 to 4 days he has had progressively band of tightening around his lower ribs and also noted some hematemesis after retching for long period of time. He notes that in [place] few years ago he was told he had alcoholic cirrhosis and occasionally gets some pain in his right lower ribs or right upper quadrant abdomen that he associates with his liver barking. He thinks he has had a history of ulcers as well as has had negative testing for viral hepatitis in the past. No use of IV needles or tattoos since then. Allergies and Home Medications Allergies Coded Allergies: acetaminophen (Verified Allergy, Mild, 04/08/19) naproxen (Verified Allergy, Mild, 04/08/19) NKANo Known Allergies (Verified Allergy, Unknown, 04/08/19) Home Medications Albuterol Sulfate 2.5 Mg/3 Ml Vial.neb, 2.5 MG INH Q4H PRN for WHEEZING Prescribed by: GEO GARCIA on 04/27/212118 Metoprolol Tartrate 25 Mg Tablet, 25 MG PO BID PRN for CHEST PAIN Prescribed by: VINCENZO OATES on 03/11/17 2316 Metoprolol Tartrate 25 Mg Tablet, 25 MG PO BID Prescribed by: GEO GARCIA on 04/09/19 0100 Nitroglycerin 0.4 Mg Tab.subl, 0.4 MG SL UD PRN for CHEST PAIN Prescribed by: ROSALVA MANCIA on 04/23/19 1624 Omeprazole 20 Mg Tablet.dr, 20 MG PO BID Prescribed by: GEO GARCIA on 04/27/212118 Sucralfate 1 Gm Tablet, 1 GM PO QIDACHS Prescribed by: GEO GARCIA on 04/27/212118 Patient Home Medication List Home Medication List Reviewed: Yes Review of Systems Review of Systems Constitutional: No chills, No diaphoresis EENTM: No ear discharge, No ear pain Respiratory: No cough, No short of breath Cardiovascular: No chest pain, No edema Gastrointestinal: abdominal pain; No nausea, No vomiting Genitourinary: No decreased output, No discharge Musculoskeletal: No back pain, No joint pain Skin: No pruritus, No rash Psychiatric/Neurological: Denies Anxiety, Denies Depressed All Other Systems Reviewed Negative Unless Noted: Yes Past Iafezav-Qvqghf-Igvpol Hx Patient Social History Tobacco Use?: Yes Tobacco type used: Cigarettes Smoking Status: Current Everyday Smoker Substance use?: No Alcohol Use?: Yes Alcohol type: Beer Alcohol Frequency: Daily Pt feels they are or have been: No Immunizations Up To Date Tetanus Booster (TDap): Less than 5yrs PED Vaccines UTD: No Seasonal Allergies Seasonal Allergies: No Past Medical History Surgeries: Yes (right knee surgery, surgery on eye) Eye Surgery, Orthopedic Respiratory: No Currently Using CPAP: No Currently Using BIPAP: No Cardiac: Yes (SVT) Neurological: No Reproductive Disorders: No Sexually Transmitted Disease: No HIV/AIDS: No Genitourinary: Yes Kidney Stones Gastrointestinal: Yes Chronic Constipation Musculoskeletal: No Endocrine: No HEENT: No Eye Injury Loss of Vision: Denies Hearing Impairment: Denies Cancer: No Did You Recieve Any Treatments: No Psychosocial: Yes Anxiety Integumentary: No Blood Disorders: No Adverse Reaction/Blood Tranf: No Family Medical History No Pertinent Family Hx Physical Exam Vital Signs - First Documented 04/27/21 17:36 Temp 37.2 Pulse 89 Resp 16 B/P (MAP) 122/84 (97) Pulse Ox 98 O2 Delivery Room Air Capillary Refill : Less Than 3 Seconds Height: 5'9.00" Weight: 200lbs. 0.0oz. [id number]; 26.00 BMI Method:Stated General Appearance: WD/WN, mild distress Eyes: Bilateral Eye Normal Inspection, Bilateral Eye PERRL, Bilateral Eye EOMI HEENT: PERRL/EOMI, TMs normal, pharynx normal Neck: full range of motion, normal inspection Respiratory: chest non-tender, no respiratory distress, no accessory muscle use, decreased breath sounds, wheezing (Mild bilateral) Cardiovascular: normal peripheral pulses, regular rate, rhythm Gastrointestinal: non tender, soft Neurologic/Psychiatric: alert, normal mood/affect, oriented x 3 Skin: normal color, warm/dry Procedures/Interventions Suture Size: 4-0 Progress/Results/Core Measures Suspected Sepsis SIRS Temperature: Pulse: 89 Respiratory Rate: 16 Laboratory Tests 04/27/21 18:44: White Blood Count 6.7 Blood Pressure 122 /84 Mean: 97 Laboratory Tests 04/27/21 18:44: Creatinine 0.74, INR Comment 0.9, Platelet Count 117L, Total Bilirubin 0.7 Results/Orders Lab Results Laboratory Tests Test 04/27/21 17:44 04/27/21 18:44 04/27/21 19:46 04/27/21 20:35 Range/Units Influenza Type A (RT-PCR) Not Detected Not Detecte Influenza Type B (RT-PCR) Not Detected Not Detecte SARS-CoV-2 RNA (RT-PCR) Not Detected Not Detecte White Blood Count 6.7 4.3-11.0 10^3/uL Red Blood Count 4.79 4.30-5.52 10^6/uL Hemoglobin 16.1 13.3-17.7 g/dL Hematocrit 46 40-54 % Mean Corpuscular Volume 95 80-99 fL Mean Corpuscular Hemoglobin 34 25-34 pg Mean Corpuscular Hemoglobin Concent 35 32-36 g/dL Red Cell Distribution Width 12.4 10.0-14.5 % Platelet Count 117 L 130-400 10^3/uL Mean Platelet Volume 11.0 9.0-12.2 fL Immature Granulocyte % (Auto) 0 % Neutrophils (%) (Auto) 48 42-75 % Lymphocytes (%) (Auto) 38 12-44 % Monocytes (%) (Auto) 12 0-12 % Eosinophils (%) (Auto) 2 0-10 % Basophils (%) (Auto) 0 0-10 % Neutrophils # (Auto) 3.2 1.8-7.8 10^3/uL Lymphocytes # (Auto) 2.5 1.0-4.0 10^3/uL Monocytes # (Auto) 0.8 0.0-1.0 10^3/uL Eosinophils # (Auto) 0.1 0.0-0.3 10^3/uL Basophils # (Auto) 0.0 0.0-0.1 10^3/uL Immature Granulocyte # (Auto) 0.0 0.0-0.1 10^3/uL Percent Immature Platelet Fraction 7.7 H 0.0-7.6 % Prothrombin Time 12.1 L 12.2-14.7 SEC INR Comment 0.9 0.8-1.4 Activated Partial Thromboplast Time 27 24-35 SEC D-Dimer 1.76 H 0.00-0.49 UG/ML Sodium Level 143 135-145 MMOL/L Potassium Level 3.3 L 3.6-5.0 MMOL/L Chloride Level 107 98-107 MMOL/L Carbon Dioxide Level 20 L 21-32 MMOL/L Anion Gap 16 H 5-14 MMOL/L Blood Urea Nitrogen 5 L 7-18 MG/DL Creatinine 0.74 0.60-1.30 MG/DL Estimat Glomerular Filtration Rate > 60 BUN/Creatinine Ratio 7 Glucose Level 59 *L 70-105 MG/DL Calcium Level 8.4 L 8.5-10.1 MG/DL Corrected Calcium 8.2 L 8.5-10.1 MG/DL Magnesium Level 1.9 1.6-2.4 MG/DL Total Bilirubin 0.7 0.1-1.0 MG/DL Aspartate Amino Transf (AST/SGOT) 167 H 5-34 U/L Alanine Aminotransferase (ALT/SGPT) 184 H 0-55 U/L Alkaline Phosphatase 77 40-136 U/L Myoglobin 59.7 10.0-92.0 NG/ML Troponin I < 0.028 <0.028 NG/ML Total Protein 6.9 6.4-8.2 GM/DL Albumin 4.3 3.2-4.5 GM/DL Lipase 43 8-78 U/L Glucometer 66 L 86 70-110 MG/DL My Orders Orders - GEO GARCIA Albuterol/Ipra Inhalation Soln (Duoneb I (04/27/21 19:00) Chest 1 View, Ap/Pa Only (04/27/21 18:48) Svn Small Volume Nebulizer (04/27/21 18:48) Cbc With Automated Diff (04/27/21 18:48) Magnesium (04/27/21 18:48) Ekg Tracing (04/27/21 18:48) Comprehensive Metabolic Panel (04/27/21 18:48) Myoglobin Serum (04/27/21 18:48) Protime With Inr (04/27/21 18:48) Partial Thromboplastin Time (04/27/21 18:48) O2 (04/27/21 18:48) Monitor-Rhythm Ecg Trace Only (04/27/21 18:48) Lipid Panel (04/28/21 06:00) Ed Iv/Invasive Line Start (04/27/21 18:48) Lipase (04/27/21 18:48) Fibrin Degradation Products (04/27/21 18:48) Troponin I (04/27/21 18:48) Aspirin Chewable Tablet (Baby Aspirin Ch (04/27/21 19:00) Lidocaine 2% Viscous 15 Ml (Xylocaine Vi (04/27/21 19:15) Antacid Suspension (Mylanta Suspension (04/27/21 19:15) Pantoprazole Injection (Protonix Injecti (04/27/21 19:15) Accucheck Stat ONCE (04/27/21 19:29) Ct Angio Chest W (04/27/21 19:44) Ed Iv/Invasive Line Start (04/27/21 19:44) Ns Iv 1000 Ml (Sodium Chloride 0.9%) (04/27/21 19:45) Iohexol Injection (Omnipaque 350 Mg/Ml 1 (04/27/21 20:00) Received Contrast (Hold Metformin- Contr (04/27/21 20:00) Sodium Chloride Flush (Catheter Flush Sy (04/27/21 20:00) Ns (Ivpb) (Sodium Chloride 0.9% Ivpb Bag (04/27/21 20:00) D5 Ns 1000 Ml Iv Solution (Dextrose 5%/0 (04/27/21 20:00) Medications Given in ED Current Medications Medications Dose Ordered Sig/Bartolome Route Start Time Stop Time Status Last Admin Dose Admin Al Hydrox/Mg Hydrox/Simethicone 30 ml ONCE ONCE PO 04/27/21 19:15 04/27/21 19:16 DC 04/27/21 19:41 30 ML Albuterol/ Ipratropium 3 ml ONCE ONCE INH 04/27/21 19:00 04/27/21 19:01 DC 04/27/21 18:56 3 ML Aspirin 324 mg ONCE ONCE PO 04/27/21 19:00 04/27/21 19:01 DC 04/27/21 18:55 324 MG Lidocaine HCl 15 ml ONCE ONCE PO 04/27/21 19:15 04/27/21 19:16 DC 04/27/21 19:41 15 ML Pantoprazole 40 mg ONCE ONCE IV 04/27/21 19:15 04/27/21 19:16 DC 04/27/21 19:40 40 MG Vital Signs/I&O 04/27/21 04/27/21 17:36 21:45 Temp 37.2 36.3 Pulse 89 80 Resp 16 18 B/P (MAP) 122/84 (97) 109/66 Pulse Ox 98 97 O2 Delivery Room Air Room Air Capillary Refill : Less Than 3 Seconds Blood Pressure Mean: 97 Progress Note #1: Time: 19:11 Progress Note Concern for variceal bleeding of the esophagus versus hemoptysis which could be from pulmonary embolism although he is not hypoxic. Because of his weight loss of malignancy is high likelihood as well. PUD/gastric ulcers etc. is also possibility. We will give him a GI cocktail and check some labs and PT/INR. Progress Note #2: Time: 21:15 Progress Note After the albuterol patient's wheezing is gone. And the GI cocktail did not do much to help his discomfort. I am concerned with his blood after emesis that he may have some esophageal varices with his history of hepatic cirrhosis. Make a referral to Dr. Melvin, general surgery to consider EGD and further work-up of his epigastric abdominal discomfort. We will put him on Carafate and omeprazole. We will send a prescription for some albuterol. He says he already has a nebulizer. ECG Initial ECG Impression Date: Apr 27, 2021 Initial ECG Impression Time: 18:32 Initial ECG Rate: 91 Initial ECG Rhythm: Normal Sinus Initial ECG Intervals: Normal Initial ECG Impression: Normal, Nonspecific Changes Initial ECG Comparisson: No Previous ECG Available Comment Normal sinus rhythm without clinically relevant ST changes Diagnostic Imaging Diagonstic Imaging: Xray Plain Films/CT/US/NM/MRI: chest Comments [facility]. [place], [place] NAME: CHARITY NEAL [facility] REC#: [id number] PT STATUS: REG ER : 1980 PHYSICIAN: GEO GARCIA MD ADMIT DATE: 04/27/21/ER Signed Date of Exam:04/27/21 CHEST 1 VIEW, AP/PA ONLY EXAMINATION: Chest 1 view HISTORY: Shortness of breath. COMPARISON: 04/23/2019. FINDINGS: The lung volumes are normal. No focal consolidation is seen. No large pleural effusion or pneumothorax is seen. The cardiomediastinal silhouette is normal in size and contour. No acute osseous abnormality is seen. IMPRESSION: 1. No acute pleuroparenchymal process. Dictated by: Dictated on workstation # [id number] Dict: 04/27/211957 Trans: 04/27/211999 [facility] [id number] Interpreted by: LAURA CASTRO DO Electronically signed by: LAURA CASTRO DO 04/27/211999 Reviewed: Reviewed by Hi Diagonstic Imaging: CT (angio) Plain Films/CT/US/NM/MRI: chest Comments [facility] [place] [place] NAME: CHARITY NEAL [facility] REC#: [id number] PT STATUS: REG ER : 1980 PHYSICIAN: GEO GARCIA MD ADMIT DATE: 04/27/21/ER Signed Date of Exam:04/27/21 CT ANGIO CHEST W PROCEDURE: CT angiography of the chest with contrast. TECHNIQUE: Multiple contiguous axial images were obtained through the chest after uneventful bolus administration of intravenous contrast. 3D reconstructed CTA MIP acquisitions were also performed. Auto Exposure Controls were utilized during the CT exam to meet ALARA standards for radiation dose reduction. INDICATION: Shortness of breath. Evaluate for Covid infection. Concern for PE. Elevated D-dimer. COMPARISON: Chest radiograph performed earlier this same date. FINDINGS: This helical CT pulmonary angiogram is diagnostic to the segmental level branches of the pulmonary artery and demonstrates no pulmonary emboli. The subsegmental pulmonary arteries in the lung bases are not well evaluated due to motion artifact. The heart and great vessels are unremarkable. There is no pericardial effusion. There is no axillary, mediastinal, or hilar adenopathy. The lungs demonstrate no consolidation, nodules, or other parenchymal abnormality. No pleural effusion is seen. Osseous structures appear normal. There is hepatic steatosis. IMPRESSION: 1. No acute pulmonary embolus. Negative CT chest. 2. Hepatic steatosis. Dictated by: Dictated on workstation # [id number] Dict: 04/27/212014 Trans: 04/27/212021 [facility] [phone] Interpreted by: LAURA CASTRO DO Electronically signed by: LAURA CASTRO DO 04/27/212021 Reviewed: Reviewed by Me Departure Impression Primary Impression: Abdominal pain Qualified Codes: R10.13 - Epigastric pain Additional Impression: COPD (chronic obstructive pulmonary disease) Qualified Codes: J44.1 - Chronic obstructive pulmonary disease with (acute) exacerbation Disposition: 01 HOME, SELF-CARE Condition: Stable Departure-Patient Inst. Decision time for Depature: 21:16 Referrals: [facility] [place] (PCP/Family) Primary Care Physician ALINA MELVIN DO Patient Instructions: Esophageal Varices, Exacerbation of COPD (DC) Add. Discharge Instructions: I suspect with your bleeding and history of liver cirrhosis you may have developed esophageal varices. An EGD will help determine this as well as rule out the possibility for peptic ulcer or other disease in the stomach. Start Carafate half an hour before meals and at bedtime for the next 2 weeks. Omeprazole twice a day 20 mg for the next [address] Melvin to set up the EGD outpatient. Albuterol through the nebulizer every 4 hours as needed for wheezing or shortness of air. Return to the ER for intractable bleeding, chest pain or other worrisome sym ptoms. All discharge instructions reviewed with patient and/or family. Voiced understanding. Scripts Omeprazole (Omeprazole) 20 Mg Tablet. 20 MG PO BID for 30 Days, #60 TAB 0 Refills Prov: GEO GARCIA 04/27/21 Sucralfate (Carafate) 1 Gm Tablet 1 GM PO QIDACHS for 14 Days, #56 TAB 0 Refills Prov: GEO GARCIA 04/27/21 Albuterol Sulfate (Albuterol Sulfate) 2.5 Mg/3 Ml Vial.neb 2.5 MG INH Q4H PRN for WHEEZING, #50 EA 1 Refill Prov: GEO GARCIA 04/27/21 Copy Copies To 1: ALINA MELVIN DO GEO GARCIA Apr 27, 2021 18:50
[2021-04-27 18:56] LABS: BASOPHILS % (AUTO) 0 % (0-10); HEMOGLOBIN 16.1 g/dL (13.3-17.7); MEAN CORPUSCULAR VOLUME 95 fL (80-99)
[2021-04-27 18:57] LABS: EOSINOPHILS # (AUTO) 0.1 10^3/uL (0.0-0.3); EOSINOPHILS % (AUTO) 2 % (0-10); HEMATOCRIT 46 % (40-54); LYMPHOCYTES # (AUTO) 2.5 10^3/uL (1.0-4.0); LYMPHOCYTES % (AUTO) 38 % (12-44); MEAN CORPUSCULAR HEMOGLOBIN 34 pg (25-34); MEAN CORPUSCULAR HGB CONC 35 g/dL (32-36); MONOCYTES # (AUTO) 0.8 10^3/uL (0.0-1.0); MONOCYTES % (AUTO) 12 % (0-12); NEUTROPHILS # (AUTO) 3.2 10^3/uL (1.8-7.8); NEUTROPHILS % (AUTO) 48 % (42-75); PLATELET COUNT 117 10^3/uL (130-400); WHITE BLOOD COUNT 6.7 10^3/uL (4.3-11.0)
[2021-04-27] MEDS ORDERED: ASPIRIN 81 MG CHEW (CHILDREN'S ASA) PO ONE (19:00)
[2021-04-27] MEDS ORDERED: RT-ALBUTEROL/IPRATROPIUM 3 ML (DUONEB) VIAL INH ONE (19:00)
[2021-04-27 19:08] LABS: ALBUMIN 4.3 GM/DL (3.2-4.5); CHLORIDE 107 MMOL/L (98-107); INR 0.9 (0.8-1.4); POTASSIUM 3.3 MMOL/L (3.6-5.0); PROTHROMBIN TIME PATIENT 12.1 SEC (12.2-14.7); SODIUM 143 MMOL/L (135-145)
[2021-04-27 19:09] LABS: CALCIUM 8.4 MG/DL (8.5-10.1)
[2021-04-27 19:11] LABS: TOTAL PROTEIN 6.9 GM/DL (6.4-8.2)
[2021-04-27 19:12] LABS: BILIRUBIN,TOTAL 0.7 MG/DL (0.1-1.0); CARBON DIOXIDE 20 MMOL/L (21-32)
[2021-04-27 19:14] LABS: ALKALINE PHOSPHATASE 77 U/L (40-136); CREATININE SERUM 0.74 MG/DL (0.60-1.30); GFR ESTIMATED > 60
[2021-04-27 19:15] LABS: BUN/CREATININE RATIO 7; GLUCOSE 59 MG/DL (70-105)
[2021-04-27] MEDS ORDERED: PANTOPRAZOLE 40 MG (PROTONIX) VIAL IV ONE (19:15)
[2021-04-27] MEDS ORDERED: ANTACID SUSP 30 ML UDC (MYLANTA) PO ONE (19:15)
[2021-04-27] MEDS ORDERED: LIDOCAINE 2% VISCOUS 15 ML UDC PO ONE (19:15)
[2021-04-27 19:17] LABS: ALANINE AMINOTRANSFERASE 184 U/L (0-55); MAGNESIUM 1.9 MG/DL (1.6-2.4)
[2021-04-27 19:18] LABS: LIPASE 43 U/L (8-78)
[2021-04-27] MEDS ORDERED: NS IV 1000 ML 1,000 ML IV SCH (19:45)
--- NOTE | 2021-04-27 19:59 | Diagnostic Imaging Report ---
EXAMINATION: Chest 1 view HISTORY: Shortness of breath. COMPARISON: 04/23/2019. FINDINGS: The lung volumes are normal. No focal consolidation is seen. No large pleural effusion or pneumothorax is seen. The cardiomediastinal silhouette is normal in size and contour. No acute osseous abnormality is seen. IMPRESSION: 1. No acute pleuroparenchymal process. Dictated by: Dictated on workstation # [id number]
[2021-04-27] MEDS ORDERED: HOLD METFORMIN - RECEIVED CONTRAST 20 ML VIAL IV SCH (20:00)
[2021-04-27] MEDS ORDERED: CATHETER FLUSH 10 ML SYR IV PRN (20:00)
[2021-04-27] MEDS ORDERED: IOHEXOL 350 MG/ML 100 ML (OMNIPAQUE 350) VIAL IV ONE (20:00)
[2021-04-27] MEDS ORDERED: NS 100 ML (IVPB) BAG IV ONE (20:00)
[2021-04-27] MEDS ORDERED: D5 NS 1000 ML IV SOLUTION 1,000 ML IV SCH (20:00)
--- NOTE | 2021-04-27 20:21 | Diagnostic Imaging Report ---
PROCEDURE: CT angiography of the chest with contrast. TECHNIQUE: Multiple contiguous axial images were obtained through the chest after uneventful bolus administration of intravenous contrast. 3D reconstructed CTA MIP acquisitions were also performed. Auto Exposure Controls were utilized during the CT exam to meet ALARA standards for radiation dose reduction. INDICATION: Shortness of breath. Evaluate for Covid infection. Concern for PE. Elevated D-dimer. COMPARISON: Chest radiograph performed earlier this same date. FINDINGS: This helical CT pulmonary angiogram is diagnostic to the segmental level branches of the pulmonary artery and demonstrates no pulmonary emboli. The subsegmental pulmonary arteries in the lung bases are not well evaluated due to motion artifact. The heart and great vessels are unremarkable. There is no pericardial effusion. There is no axillary, mediastinal, or hilar adenopathy. The lungs demonstrate no consolidation, nodules, or other parenchymal abnormality. No pleural effusion is seen. Osseous structures appear normal. There is hepatic steatosis. IMPRESSION: 1. No acute pulmonary embolus. Negative CT chest. 2. Hepatic steatosis. Dictated by: Dictated on workstation # [id number]
[2021-04-27] MEDS ORDERED: OMEP20TA7 PO (21:19)
[2021-04-27] MEDS ORDERED: ALBU2.5V4 INH (21:19)
[2021-04-27] MEDS ORDERED: SUCR1TAB36 PO (21:19)
[2021-04-27 21:45] VITALS: BP 109/66
[2021-04-28 08:45] LABS: TRIGLYCERIDES 113 MG/DL (<150); VLDL CHOLESTEROL 23 MG/DL (5-40)
[2021-04-28 08:50] LABS: CHOLESTEROL 149 MG/DL (< 200); HDL CHOLESTEROL 55 MG/DL (40-60)
== END 2021-04-27 21:45 | disposition home or self-care (01) ==
LOC: EDUNIT# 17:11 → ER 17:12
DX: R10.11 Right upper quadrant pain (principal); J44.9 Chronic obstructive pulmonary disease, unspecified; F17.210 Nicotine dependence, cigarettes, uncomplicated; Z20.822 Contact with and (suspected) exposure to COVID-19
CPT/HCPCS: 36415; 71045; 71275; 80053; 80061; 82947; 83690; 83735; 83874; 84484; 85025; 85379; 85610; 85730; 87636; 93005; 93041

== ENCOUNTER 2021-10-23 01:25 | Emergency (ER) | payer SELFPAY ==
[~2021-10-23 01:25] MED LIST changes: +ALBU2.5V4 INH; +OMEP20TA7 PO; +SUCR1TAB36 PO; -SULF1TAB35 PO; +SULF1TAB38 PO
--- NOTE | 2021-10-23 01:55 | ED General ---
General Chief Complaint: Neurological Problems Stated Complaint: SLURRED SPEECH Source of Information: Patient, EMS Exam Limitations: No Limitations (CARLI TEJEDA MED STUDENT) History of Present Illness Date Seen by Provider: Oct 23, 2021 Time Seen by Provider: 01:30 Initial Comments This is a 41 YO male smoker with history of EtOH abuse and SVT who presents to the ED with left arm twitching and leg "heaviness" for the past 4 hours. Pt says that some degree of shaking is normal for him because of his drinking, but says that the repetitive twiching episodes in his left arm are new today. However, pt says he was not concerned and did not want to come to the hospital, but his friends called EMS. Per EMS, pt would not let them transport him to the ER until he finished his cigarette. Pt says he drinks beer and smokes cigarettes from the time he wakes up until he goes to sleep. Denies any changes in his daily drinking and denies drug use. Last drink was at midnight. No recent illness or changes to medication. States he previously quit drinking, but relapsed after his left him. Denies vomiting, black/bloody stools, chest pain, or abdominal pain. Associated Systoms: No Chest Pain, No Cough (CARLI TEJEDA MED STUDENT) Timing/Duration: 4-6 Hours (MI VICENTE MD) Allergies and Home Medications Allergies Coded Allergies: acetaminophen (Verified Allergy, Mild, 04/08/19) naproxen (Verified Allergy, Mild, 04/08/19) hydrocodone (Verified Allergy, Unknown, 10/23/21) PT STATES "IT'LL MAKE ME QUIT BREATHING SO I DON'T TAKE IT" Patient Home Medication List Home Medication List Reviewed: Yes (MI VICENTE MD) Albuterol Sulfate (Albuterol Sulfate) 2.5 Mg/3 Ml Vial.neb, 2.5 MG INH Q4H PRN for WHEEZING Prescribed by: GEO GARCIA on 04/27/212118 Metoprolol Tartrate (Metoprolol Tartrate) 25 Mg Tablet, 25 MG PO BID PRN for CHEST PAIN Prescribed by: VINCENZO OATES on 03/11/17 2316 Metoprolol Tartrate (Metoprolol Tartrate) 25 Mg Tablet, 25 MG PO BID Prescribed by: GEO GARCIA on 04/09/19 0100 Nitroglycerin (Nitroglycerin) 0.4 Mg Tab.subl, 0.4 MG SL UD PRN for CHEST PAIN Prescribed by: ROSALVA MANCIA on 04/23/19 1624 Omeprazole (Omeprazole) 20 Mg Tablet.dr, 20 MG PO BID Prescribed by: GEO GARCIA on 04/27/212118 Sucralfate (Carafate) 1 Gm Tablet, 1 GM PO QIDACHS Prescribed by: GEO GARCIA on 04/27/212118 Review of Systems Review of Systems Constitutional: No chills, No fever EENTM: see HPI; No epistaxis, No throat pain Respiratory: No cough, No short of breath Cardiovascular: No chest pain, No edema Gastrointestinal: No abdominal pain, No melena Genitourinary: No decreased output, No dysuria Musculoskeletal: see HPI; No back pain; muscle twitching Skin: No pruritus, No rash Psychiatric/Neurological: See HPI; Denies Headache, Denies Seizure Hematologic/Lymphatic: No Symptoms Reported Immunological/Allergic: no symptoms reported (CARLI TEJEDA STUDENT) All Other Systems Reviewed Negative Unless Noted: Yes (Negative excepted noted.) (CARLI TEJEDA STUDENT) Past Ucilzdj-Fdtxcv-Vttvyb Hx Patient Social History Tobacco Use?: Yes Tobacco type used: Cigarettes Smoking Status: Heavy Tobacco Smoker Alcohol Use?: Yes Alcohol type: Beer Alcohol Frequency: Daily (CARLI TEJEDA STUDENT) Immunizations Up To Date Tetanus Booster (TDap): Less than 5yrs PED Vaccines UTD: No (CARLI TEJEDA) Seasonal Allergies Seasonal Allergies: No (CARLI TEJEDA) Past Medical History Surgeries: Yes (right knee surgery, surgery on eye) Eye Surgery, Orthopedic Respiratory: No Currently Using CPAP: No Currently Using BIPAP: No Cardiac: Yes (SVT) Neurological: No Reproductive Disorders: No Sexually Transmitted Disease: No HIV/AIDS: No Genitourinary: Yes Kidney Stones Gastrointestinal: Yes Chronic Constipation Musculoskeletal: No Endocrine: No HEENT: No Eye Injury Loss of Vision: Denies Hearing Impairment: Denies Cancer: No Did You Recieve Any Treatments: No Psychosocial: Yes Anxiety Integumentary: No Blood Disorders: No Adverse Reaction/Blood Tranf: No (CARLI TEJEDA STUDENT) Family Medical History No Pertinent Family Hx (TEJEDA,CARLI MED STUDENT) Physical Exam Vital Signs Vital Signs - First Documented 10/23/21 01:25 Temp 36.4 Pulse 96 Resp 18 B/P (MAP) 134/93 (107) Pulse Ox 95 O2 Delivery Room Air (MI VICENTE MD) Vital Signs Capillary Refill : (CARLI TEJEDA MED STUDENT) Height, Weight, BMI Height: 5'9.00" Weight: 200lbs. 0.0oz. [id number]; 26.00 BMI Method:Stated General Appearance: No Apparent Distress, Other (appears older than stated age) Eyes: Bilateral Eye Normal Inspection, Bilateral Eye EOMI HEENT: No Scleral Icterus (L), No Scleral Icterus (R); Other (dry mucous membranes, thrush present on the tongue; left pupil defect (known to pt); EOMI bilaterally) Neck: Normal Inspection, Supple Respiratory: Chest Non Tender, Normal Breath Sounds, No Accessory Muscle Use, No Respiratory Distress Cardiovascular: Regular Rate, Rhythm, No Edema, No Murmur, Normal Peripheral Pulses Gastrointestinal: Non Tender, Soft; No Distended, No Guarding Extremity: Normal Capillary Refill, Normal Inspection, No Pedal Edema Neurologic/Psychiatric: Alert, Oriented x3, Normal Mood/Affect; No Facial Droop, No Sensory Deficit; Other (notes bilateral numbness to cheeks and chin, but cranial nerves otherwise intact; 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 and equal electrical prospecting operator strength bilaterally; 5/5 BUE strength, 4/5 BLE strength) Skin: Normal Color, Warm/Dry; No Diaphoresis, No Jaundice (CARLI TEJEDA MED STUDENT) Procedures/Interventions Suture Size: 4-0 (CARLI TEJEDA MED STUDENT) Progress/Results/Core Measures Suspected Sepsis SIRS Temperature: Pulse: Respiratory Rate: Laboratory Tests 10/23/21 01:35: Blood Pressure / Mean: Laboratory Tests 10/23/21 01:35: Creatinine 0.66, Total Bilirubin 0.6 (CARLI TEJEDA MED STUDENT) Results/Orders Lab Results Laboratory Tests Test 10/23/21 01:35 Range/Units White Blood Count 9.1 4.3-11.0 10^3/uL Red Blood Count 4.58 4.30-5.52 10^6/uL Hemoglobin 16.1 13.3-17.7 g/dL Hematocrit 46 40-54 % Mean Corpuscular Volume 100 H 80-99 fL Mean Corpuscular Hemoglobin 35 H 25-34 pg Mean Corpuscular Hemoglobin Concent 35 32-36 g/dL Red Cell Distribution Width 12.5 10.0-14.5 % Platelet Count 166 130-400 10^3/uL Mean Platelet Volume 10.8 9.0-12.2 fL Immature Granulocyte % (Auto) 0 % Neutrophils (%) (Auto) 56 42-75 % Lymphocytes (%) (Auto) 32 12-44 % Monocytes (%) (Auto) 10 0-12 % Eosinophils (%) (Auto) 1 0-10 % Basophils (%) (Auto) 0 0-10 % Neutrophils # (Auto) 5.1 1.8-7.8 10^3/uL Lymphocytes # (Auto) 2.9 1.0-4.0 10^3/uL Monocytes # (Auto) 0.9 0.0-1.0 10^3/uL Eosinophils # (Auto) 0.1 0.0-0.3 10^3/uL Basophils # (Auto) 0.0 0.0-0.1 10^3/uL Immature Granulocyte # (Auto) 0.0 0.0-0.1 10^3/uL Sodium Level 141 135-145 MMOL/L Potassium Level 3.6 3.6-5.0 MMOL/L Chloride Level 105 98-107 MMOL/L Carbon Dioxide Level 21 21-32 MMOL/L Anion Gap 15 H 5-14 MMOL/L Blood Urea Nitrogen 3 L 7-18 MG/DL Creatinine 0.66 0.60-1.30 MG/DL Estimat Glomerular Filtration Rate 133 BUN/Creatinine Ratio 5 Glucose Level 91 70-105 MG/DL Calcium Level 8.6 8.5-10.1 MG/DL Corrected Calcium 8.3 L 8.5-10.1 MG/DL Magnesium Level 2.1 1.6-2.4 MG/DL Total Bilirubin 0.6 0.1-1.0 MG/DL Aspartate Amino Transf (AST/SGOT) 81 H 5-34 U/L Alanine Aminotransferase (ALT/SGPT) 71 H 0-55 U/L Alkaline Phosphatase 74 40-136 U/L Total Protein 7.2 6.4-8.2 GM/DL Albumin 4.4 3.2-4.5 GM/DL Serum Alcohol 389 *H <10 MG/DL (MI VICENTE MD) My Orders Orders - MI VICENTE MD Ed Iv/Invasive Line Start (10/23/21 02:14) Cbc With Automated Diff (10/23/21 02:14) Comprehensive Metabolic Panel (10/23/21 02:14) Alcohol (10/23/21 02:14) Accucheck Stat ONCE (10/23/21 02:14) Magnesium (10/23/21 02:14) Ns Iv 1000 Ml (Sodium Chloride 0.9%) (10/23/21 02:15) Thiamine Tablet (Vitamin B-1 Tablet) (10/23/21 02:15) Folic Acid Tablet (Folic Acid Tablet) (10/23/21 02:15) (MI VICENTE MD) Medications Given in ED (MI VICENTE MD) Vital Signs/I&O 10/23/21 10/23/21 01:25 03:46 Temp 36.4 36.4 Pulse 96 70 Resp 18 14 B/P (MAP) 134/93 (107) 101/67 Pulse Ox 95 96 O2 Delivery Room Air Room Air (MI VICENTE MD) Vital Signs/I&O Capillary Refill : (CARLI TEJEDA MED STUDENT) Progress Note : Time: 03:19 Progress Note 41-year-old male, chronic alcoholic heavy tobacco smoker presents to the emerge ncy department by EMS with a chief complaint of left arm "involuntary jerking", jaw "drawing up" (not unilateral), bilateral legs feeling "heavy". Patient states onset of symptoms a couple of hours prior to arrival. Has been drinking all day/night. Initially did not want to come to the hospital but friends made him. Denies any falls or trauma. No headache, vision changes. He states his speech was "more slurred" than his usual for his drinking earlier this evening. That has since resolved. He states occasional tremors are normal for him when drinking. The "jerking" is new. He denies weakness in his arms. He denies weakness in his legs but states they feel heavy. No numbness. Physical exam is remarkable for obvious intoxication. Symmetrical strength in his upper and lower extremities, he states there is subjective decrease in sensation in his left hand. No facial asymmetry. Tongue is midline. Extraocular muscles are intact. No other focal neurologic deficits are appreciated. Gait is not tested secondary to intoxication. Basic laboratory studies are ordered, CBC, Chem-12, alcohol level. He is quite intoxicated with an EtOH greater than 300. Patient is treated with 2 L of normal saline here in the emergency department. He is given thiamine and folate by mouth. Vital signs have been stable. I suspect the onset of the "jerking" and paresthesia are more related to chronic alcohol and tobacco use and not symptoms of stroke. CT scan of the head was not done. Patient is strongly encouraged to quit smoking and quit drinking. He is also encouraged to follow- up with his primary care provider at [facility]. Return precautions have been given. All questions are sought and answered. (MI VICENTE MD) ECG Initial ECG Impression Date: Oct 23, 2021 Initial ECG Impression Time: 01:39 Initial ECG Rate: 89 Initial ECG Rhythm: Normal Sinus Initial ECG Intervals OK 160 QRS 100 Qtc 473 Initial ECG Impression: Normal Comment no ectopy, no ST elevation or depression (MI VICENTE MD) Departure Impression Primary Impression: Alcohol intoxication Qualified Codes: F10.920 - Alcohol use, unspecified with intoxication, uncomplicated Additional Impressions: Occasional tremors Tobacco abuse Chronic alcohol abuse Disposition: HOME, SELF-CARE Condition: Stable Departure-Patient Inst. Decision time for Depature: 03:17 (MI VICENTE MD) Referrals: [facility] (PCP/Family) Primary Care Physician Patient Instructions: Tremor, Alcohol Use Disorder (DC) Add. Discharge Instructions: Continue your daily metoprolol as prescribed. You need to cut back/quit alcohol and smoking. Call [facility] for a follow up appointment on Tuesday to further evaluate your tremors. Return to the ER for any new, concerning or emergent complaints. Verification and Attestation of Medical Student E/M Service A medical student performed and documented this service in my presence. I reviewed and verified all information documented by the medical student and made modifications to such information, when appropriate. I personally performed the physical exam and medical decision making. Mi Vicente, Oct 23, 2021,03:23 (MI VICENTE MD) Copy Copies To 1: CESIA MAX CHRISTINE MED STUDENT Oct 23, 2021 01:55 MI VICENTE MD 31, 2021 03:23
[2021-10-23] MEDS ORDERED: THIAMINE 100 MG (VITAMIN B-1) TAB PO ONE (02:15)
[2021-10-23] MEDS ORDERED: FOLIC ACID 1 MG TAB PO ONE (02:15)
[2021-10-23] MEDS ORDERED: NS IV 1000 ML 1,000 ML IV SCH (02:15)
[2021-10-23 02:26] LABS: BASOPHILS % (AUTO) 0 % (0-10); EOSINOPHILS # (AUTO) 0.1 10^3/uL (0.0-0.3); EOSINOPHILS % (AUTO) 1 % (0-10); HEMATOCRIT 46 % (40-54); HEMOGLOBIN 16.1 g/dL (13.3-17.7); LYMPHOCYTES # (AUTO) 2.9 10^3/uL (1.0-4.0); LYMPHOCYTES % (AUTO) 32 % (12-44); MEAN CORPUSCULAR HEMOGLOBIN 35 pg (25-34); MEAN CORPUSCULAR HGB CONC 35 g/dL (32-36); MEAN CORPUSCULAR VOLUME 100 fL (80-99); MEAN PLATELET VOLUME 10.8 fL (9.0-12.2); MONOCYTES # (AUTO) 0.9 10^3/uL (0.0-1.0); MONOCYTES % (AUTO) 10 % (0-12); NEUTROPHILS # (AUTO) 5.1 10^3/uL (1.8-7.8); NEUTROPHILS % (AUTO) 56 % (42-75); PLATELET COUNT 166 10^3/uL (130-400); WHITE BLOOD COUNT 9.1 10^3/uL (4.3-11.0)
[2021-10-23 02:27] LABS: ALBUMIN 4.4 GM/DL (3.2-4.5); POTASSIUM 3.6 MMOL/L (3.6-5.0)
[2021-10-23 02:29] LABS: CALCIUM 8.6 MG/DL (8.5-10.1)
[2021-10-23 02:30] LABS: TOTAL PROTEIN 7.2 GM/DL (6.4-8.2)
[2021-10-23 02:32] LABS: BILIRUBIN,TOTAL 0.6 MG/DL (0.1-1.0)
[2021-10-23 02:34] LABS: CREATININE SERUM 0.66 MG/DL (0.60-1.30)
[2021-10-23 02:36] LABS: MAGNESIUM 2.1 MG/DL (1.6-2.4)
[2021-10-23 03:46] VITALS: BP 101/67
== END 2021-10-23 03:46 | disposition home or self-care (01) ==
LOC: EDUNIT# 01:31 → ER 01:32
DX: R25.1 Tremor, unspecified (principal); F19.229 Other psychoactive substance dependence with intoxication, unspecified; F17.210 Nicotine dependence, cigarettes, uncomplicated; Y90.8 Blood alcohol level of 240 mg/100 ml or more
CPT/HCPCS: 80053; 83735; 85025; 93005; 99284; G0480; 36415; 80320

== ENCOUNTER 2021-11-07 14:45 | Emergency (ER) | payer SELFPAY ==
[~2021-11-07] VITALS: Ht 175 cm; Wt 79.0 kg
[2021-11-07] MEDS ORDERED: LACTATED RINGERS 1,000 ML IV ONE ×2 (15:15→19:30)
[2021-11-07 15:31] LABS: BASOPHILS % (AUTO) 0 % (0-10); EOSINOPHILS # (AUTO) 0.1 10^3/uL (0.0-0.3); EOSINOPHILS % (AUTO) 1 % (0-10); HEMATOCRIT 46 % (40-54); HEMOGLOBIN 16.2 g/dL (13.3-17.7); LYMPHOCYTES # (AUTO) 3.6 10^3/uL (1.0-4.0); LYMPHOCYTES % (AUTO) 34 % (12-44); MEAN CORPUSCULAR HEMOGLOBIN 35 pg (25-34); MEAN CORPUSCULAR HGB CONC 36 g/dL (32-36); MEAN CORPUSCULAR VOLUME 97 fL (80-99); MEAN PLATELET VOLUME 9.9 fL (9.0-12.2); MONOCYTES # (AUTO) 0.6 10^3/uL (0.0-1.0); MONOCYTES % (AUTO) 6 % (0-12); NEUTROPHILS # (AUTO) 6.2 10^3/uL (1.8-7.8); NEUTROPHILS % (AUTO) 59 % (42-75); PLATELET COUNT 152 10^3/uL (130-400); WHITE BLOOD COUNT 10.6 10^3/uL (4.3-11.0)
[2021-11-07 15:34] LABS: ALBUMIN 4.3 GM/DL (3.2-4.5); POTASSIUM 3.6 MMOL/L (3.6-5.0)
[2021-11-07 15:36] LABS: CALCIUM 8.4 MG/DL (8.5-10.1)
[2021-11-07 15:38] LABS: BILIRUBIN,TOTAL 0.4 MG/DL (0.1-1.0)
[2021-11-07 15:40] LABS: CREATININE SERUM 0.62 MG/DL (0.60-1.30)
[2021-11-07 15:43] LABS: MAGNESIUM 2.3 MG/DL (1.6-2.4)
--- NOTE | 2021-11-07 15:59 | Diagnostic Imaging Report ---
PROCEDURE: CT head and CT cervical spine without contrast. TECHNIQUE: Multiple contiguous axial images were obtained through the brain and cervical spine without the use of intravenous contrast. Sagittal and coronal reformations through the cervical spine were then performed. Auto Exposure Controls were utilized during the CT exam to meet ALARA standards for radiation dose reduction. INDICATION: Head and neck trauma. Weakness for 10 days. COMPARISON: 10/09/2010. FINDINGS: CT HEAD: The ventricles and cortical sulci are age-appropriate. There is no midline shift or mass effect. No acute intracranial hemorrhage is seen. There is no CT evidence of acute territorial ischemia. The calvarium appears intact. There is mild mucosal thickening in the ethmoid sinuses; otherwise, paranasal sinuses appear clear. CT CERVICAL SPINE: Alignment of the cervical spine appears normal. There is mild degenerative change at C6-C7. Vertebral body heights are preserved. No acute fracture is seen. No bony fragments or hyperdense fluid collections are seen in the spinal canal. Soft tissues about the neck demonstrate no acute abnormality. There is mild paraseptal emphysematous change in the lung apices. IMPRESSION: 1. No acute intracranial hemorrhage or CT evidence of acute territorial ischemia. 2. Mild degenerative change in the cervical spine with no acute fracture. 3. Mild emphysematous change in the lung apices. Dictated by: Dictated on workstation # [id number]
[2021-11-07 16:01] LABS: BILIRUBIN,URINE NEGATIVE (NEGATIVE); CLARITY,URINE CLEAR; COLOR,URINE YELLOW; GLUCOSE, URINE (UA) NEGATIVE (NEGATIVE); KETONES,URINE NEGATIVE (NEGATIVE); LEUKOCYTE ESTERASE ,URINE NEGATIVE (NEGATIVE); NITRITE,URINE NEGATIVE (NEGATIVE); PROTEIN,URINE NEGATIVE (NEGATIVE)
[2021-11-07 16:09] LABS: BACTERIA,URINE NEGATIVE /HPF
[2021-11-07 16:14] LABS: AMPHETAMINE SCREEN, URINE NEGATIVE (NEGATIVE); BARBITURATE SCREEN URINE NEGATIVE (NEGATIVE); BENZODIAZEPINES SCREEN URINE NEGATIVE (NEGATIVE); CANNABINOID SCREEN, URINE NEGATIVE (NEGATIVE); COCAINE SCREEN URINE NEGATIVE (NEGATIVE); METHADONE STAT NEGATIVE (NEGATIVE); METHAMPHETAMINE SCREEN URINE S NEGATIVE (NEGATIVE); OPIATE SCREEN URINE NEGATIVE (NEGATIVE); OXYCODONE STAT NEGATIVE (NEGATIVE); PROPOXYPHENE STAT NEGATIVE (NEGATIVE); TRICYCLIC ANTIDEPRESSANTS SCRE NEGATIVE (NEGATIVE)
--- NOTE | 2021-11-07 17:47 | ED General ---
General Chief Complaint: Neurological Problems Stated Complaint: WEAKNESS Nursing Triage Note: PT TO ED W/ C/O WEAKNESS ONSET X10 DAYS. PT REPORTS WAS SEEN AT THAT TIME FOR SAME C/O ET DENIES IMPROVEMENT. PT ALSO C/O POSS HERPES-LIKE RASH TO LLE. NO OTHER C/O VOICED. Source of Information: Patient Exam Limitations: No Limitations (WALLY BILLY MD) History of Present Illness Date Seen by Provider: Nov 07, 2021 Time Seen by Provider: 14:47 Initial Comments This 41-year-old man is brought to the emergency room via EMS for complaints of stuttering speech and difficulty walking. He lives in a shed behind at home where he is being warmed with two heaters. He drinks alcohol heavily on a regular basis and EMS reports there was a lot of beer in the shed with him. He moves all four extremities equally but seems diffusely weak. He is alert and conversational but appears intoxicated. He has a blistering rash on his left l eg for which he is taking antivirals for suspected shingles. (WALLY BILLY MD) Allergies and Home Medications Allergies Coded Allergies: acetaminophen (Verified Allergy, Mild, 04/08/19) naproxen (Verified Allergy, Mild, 04/08/19) hydrocodone (Verified Allergy, Unknown, 10/23/21) PT STATES "IT'LL MAKE ME QUIT BREATHING SO I DON'T TAKE IT" Patient Home Medication List Home Medication List Reviewed: Yes (WALLY BILLY MD) Albuterol Sulfate (Albuterol Sulfate) 2.5 Mg/3 Ml Vial.neb, 2.5 MG INH Q4H PRN for WHEEZING Prescribed by: GEO GARCIA on 04/27/212118 Metoprolol Tartrate (Metoprolol Tartrate) 25 Mg Tablet, 25 MG PO BID PRN for CHEST PAIN Prescribed by: VINCENZO OATES on 03/11/17 2316 Metoprolol Tartrate (Metoprolol Tartrate) 25 Mg Tablet, 25 MG PO BID Prescribed by: GEO GARCIA on 04/09/19 0100 Nitroglycerin (Nitroglycerin) 0.4 Mg Tab.subl, 0.4 MG SL UD PRN for CHEST PAIN Prescribed by: ALIYAH MANCIA on 04/23/19 1624 Omeprazole (Omeprazole) 20 Mg Tablet.dr, 20 MG PO BID Prescribed by: GEO GARCIA on 04/27/212118 Sucralfate (Carafate) 1 Gm Tablet, 1 GM PO QIDACHS Prescribed by: GEO GARCIA on 04/27/212118 Review of Systems Review of Systems Constitutional: see HPI EENTM: no symptoms reported Respiratory: no symptoms reported Cardiovascular: no symptoms reported Gastrointestinal: no symptoms reported Genitourinary: no symptoms reported Musculoskeletal: no symptoms reported Skin: see HPI Psychiatric/Neurological: See HPI Hematologic/Lymphatic: No Symptoms Reported Immunological/Allergic: no symptoms reported (WALLY BILLY MD) Past Rrafils-Cslarv-Hrriob Hx Patient Social History Tobacco Use?: Yes Tobacco type used: Cigarettes Alcohol Use?: Yes Alcohol type: Beer Alcohol Frequency: Daily (WALLY BILLY MD) Immunizations Up To Date Tetanus Booster (TDap): Less than 5yrs PED Vaccines UTD: No Second COVID19 Vaccination Royal: STATES "2ND SHOT WAS A WEEK AGO" (PRIOR TO 10/23/21 VISIT) (WALLY BILLY MD) Seasonal Allergies Seasonal Allergies: No (WALLY BILLY MD) Past Medical History Surgeries: Yes (right knee surgery, surgery on eye) Eye Surgery, Orthopedic Respiratory: No Currently Using CPAP: No Currently Using BIPAP: No Cardiac: Yes (SVT) Neurological: No Reproductive Disorders: No Sexually Transmitted Disease: No HIV/AIDS: No Genitourinary: Yes Kidney Stones Gastrointestinal: Yes Chronic Constipation Musculoskeletal: No Endocrine: No HEENT: Yes Eye Injury 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 0.0oz. 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) Neck: Normal Inspection Respiratory: Lungs Clear, Normal Breath Sounds, No Accessory Muscle Use Cardiovascular: Regular Rate, Rhythm, No Edema, No Murmur Gastrointestinal: Non Tender, Soft Extremity: Normal Inspection, No Pedal Edema Neurologic/Psychiatric: Alert, Motor Weakness (Generalized) Skin: Normal Color, Warm/Dry, Ecchymosis (Left chest), Rash (Blistering erythematous rash on the left lateral leg) (WALLY BILLY MD) Procedures/Interventions Suture Size: 4-0 (WALLY BILLY MD) Progress/Results/Core Measures Suspected Sepsis SIRS Temperature: Pulse: 93 Respiratory Rate: 20 Laboratory Tests 11/07/21 15:19: White Blood Count 10.6 Blood Pressure 146 /112 Mean: 123 Laboratory Tests 11/07/21 15:19: Creatinine 0.62, Platelet Count 152, Total Bilirubin 0.4 (WALLY BILLY MD) Results/Orders Lab Results Laboratory Tests Test 11/07/21 14:18 11/07/21 15:19 Range/Units Urine Color YELLOW Urine Clarity CLEAR Urine pH 6.0 5-9 Urine Specific [place] <=1.005 1.016-1.022 Urine Protein NEGATIVE NEGATIVE Urine Glucose (UA) NEGATIVE NEGATIVE Urine Ketones NEGATIVE NEGATIVE Urine Nitrite NEGATIVE NEGATIVE Urine Bilirubin NEGATIVE NEGATIVE Urine Urobilinogen 0.2 < = 1.0 MG/DL Urine Leukocyte Esterase NEGATIVE NEGATIVE Urine RBC (Auto) NEGATIVE NEGATIVE Urine RBC NONE /HPF Urine WBC NONE /HPF Urine Squamous Epithelial Cells NONE /HPF Urine Crystals NONE /LPF Urine Bacteria NEGATIVE /HPF Urine Casts NONE /LPF Urine Mucus NEGATIVE /LPF Urine Culture Indicated NO Urine Opiates Screen NEGATIVE NEGATIVE Urine Oxycodone Screen NEGATIVE NEGATIVE Urine Methadone Screen NEGATIVE NEGATIVE Urine Propoxyphene Screen NEGATIVE NEGATIVE Urine Barbiturates Screen NEGATIVE NEGATIVE Ur Tricyclic Antidepressants Screen NEGATIVE NEGATIVE Urine Phencyclidine Screen NEGATIVE NEGATIVE Urine Amphetamines Screen NEGATIVE NEGATIVE Urine Methamphetamines Screen NEGATIVE NEGATIVE Urine Benzodiazepines Screen NEGATIVE NEGATIVE Urine Cocaine Screen NEGATIVE NEGATIVE Urine Cannabinoids Screen NEGATIVE NEGATIVE White Blood Count 10.6 4.3-11.0 10^3/uL Red Blood Count 4.68 4.30-5.52 10^6/uL Hemoglobin 16.2 13.3-17.7 g/dL Hematocrit 46 40-54 % Mean Corpuscular Volume 97 80-99 fL Mean Corpuscular Hemoglobin 35 H 25-34 pg Mean Corpuscular Hemoglobin Concent 36 32-36 g/dL Red Cell Distribution Width 12.2 10.0-14.5 % Platelet Count 152 130-400 10^3/uL Mean Platelet Volume 9.9 9.0-12.2 fL Immature Granulocyte % (Auto) 1 % Neutrophils (%) (Auto) 59 42-75 % Lymphocytes (%) (Auto) 34 12-44 % Monocytes (%) (Auto) 6 0-12 % Eosinophils (%) (Auto) 1 0-10 % Basophils (%) (Auto) 0 0-10 % Neutrophils # (Auto) 6.2 1.8-7.8 10^3/uL Lymphocytes # (Auto) 3.6 1.0-4.0 10^3/uL Monocytes # (Auto) 0.6 0.0-1.0 10^3/uL Eosinophils # (Auto) 0.1 0.0-0.3 10^3/uL Basophils # (Auto) 0.0 0.0-0.1 10^3/uL Immature Granulocyte # (Auto) 0.1 0.0-0.1 10^3/uL Sodium Level 143 135-145 MMOL/L Potassium Level 3.6 3.6-5.0 MMOL/L Chloride Level 103 98-107 MMOL/L Carbon Dioxide Level 23 21-32 MMOL/L Anion Gap 17 H 5-14 MMOL/L Blood Urea Nitrogen 3 L 7-18 MG/DL Creatinine 0.62 0.60-1.30 MG/DL Estimat Glomerular Filtration Rate 123 BUN/Creatinine Ratio 5 Glucose Level 94 70-105 MG/DL Calcium Level 8.4 L 8.5-10.1 MG/DL Corrected Calcium 8.2 L 8.5-10.1 MG/DL Magnesium Level 2.3 1.6-2.4 MG/DL Total Bilirubin 0.4 0.1-1.0 MG/DL Aspartate Amino Transf (AST/SGOT) 224 H 5-34 U/L Alanine Aminotransferase (ALT/SGPT) 193 H 0-55 U/L Alkaline Phosphatase 72 40-136 U/L Total Protein 7.0 6.4-8.2 GM/DL Albumin 4.3 3.2-4.5 GM/DL Serum Alcohol 438 *H <10 MG/DL (ALIYAH MANCIA) My Orders Orders - ALIYAH MANCIA Ua Culture If Indicated (11/07/21 14:49) Ed Iv/Invasive Line Start (11/07/21 19:19) Lactated Ringers (Lr 1000 Ml Iv Solution (11/07/21 19:30) (ALIYAH MANCIA) Medications Given in ED Current Medications Medications Dose Ordered Sig/Bartolome Route Start Time Stop Time Status Last Admin Dose Admin Lactated Ringer's 1,000 ml @ 0 mls/hr Q0M ONCE IV 11/07/21 15:15 11/07/21 15:16 DC 11/07/21 15:21 0 MLS/HR Lactated Ringer's 1,000 ml @ 0 mls/hr Q0M ONCE IV 11/07/21 19:30 11/07/21 19:31 DC 11/07/21 19:31 0 MLS/HR (ALIYAH MANCIA) Vital Signs/I&O 11/07/21 14:47 Temp 36.6 Pulse 93 Resp 20 B/P (MAP) 146/112 (123) Pulse Ox 98 O2 Delivery Room Air (ALIYAH MANCIA) Vital Signs/I&O Capillary Refill : Less Than 3 Seconds (WALLY BILLY MD) Blood Pressure Mean: 123 Progress Note : Time: 17:[address] of the head and cervical spine was obtained to rule out intracranial injury as a cause for his complaints. CT was unremarkable for acute injury. Blood alcohol level was 438 which likely explains his complaints. Labs are otherwise unremarkable. Patient received a liter of LR and is presently resting. He is still too somnolent to be discharged. Care is being transitioned to Aliyah MANCIA NP, at this time. (WALLY BILLY MD) Progress Note : Progress Note 1830 assumed care of patient. Continues to rest in bed, eyes closed. Easily vimal used but doesn't communicate with staff. Will give 1 L LR per IV. Family has called multiple times and not able to transport patient home, when he is ready. Recommended sending him by cab and they will pay the cab. 1930 Patient alert, eating crackers, drinking water and coffee. Requesting d/c to home. He is ambulatory, with steady gait. Discharge instructions and return precautions reviewed. (ALIYAH MANCIA) Diagnostic Imaging Diagonstic Imaging: CT Plain Films/CT/US/NM/MRI: c-spine, head Comments CT head and cervical spine viewed by me and report reviewed. See report below: NAME: CHARITY NEAL MED REC#: [id number] PT STATUS: REG ER : 1980 PHYSICIAN: WALLY BILLY MD ADMIT DATE: 11/07/21/ER Signed Date of Exam:11/07/21 CT HEAD/CERVICAL SPINE WO PROCEDURE: CT head and CT cervical spine without contrast. TECHNIQUE: Multiple contiguous axial images were obtained through the brain and cervical spine without the use of intravenous contrast. Sagittal and coronal reformations through the cervical spine were then performed. Auto Exposure Controls were utilized during the CT exam to meet ALARA standards for radiation dose reduction. INDICATION: Head and neck trauma. Weakness for 10 days. COMPARISON: 10/09/2010. FINDINGS: CT HEAD: The ventricles and cortical sulci are age-appropriate. There is no midline shift or mass effect. No acute intracranial hemorrhage is seen. There is no CT evidence of acute territorial ischemia. The calvarium appears intact. There is mild mucosal thickening in the ethmoid sinuses; otherwise, paranasal sinuses appear clear. CT CERVICAL SPINE: Alignment of the cervical spine appears normal. There is mild degenerative change at C6-C7. Vertebral body heights are preserved. No acute fracture is seen. No bony fragments or hyperdense fluid collections are seen in the spinal canal. Soft tissues about the neck demonstrate no acute abnormality. There is mild paraseptal emphysematous change in the lung apices. IMPRESSION: 1. No acute intracranial hemorrhage or CT evidence of acute territorial ischemia. 2. Mild degenerative change in the cervical spine with no acute fracture. 3. Mild emphysematous change in the lung apices. Dictated by: Dictated on workstation # [id number] Dict: 11/07/21 1549 Trans: 11/07/21 1610 [facility] [id number] Interpreted by: ANN CRANDALL MD Electronically signed by: ANN CRANDALL MD 11/07/21 1610 (WALLY BILLY MD) Departure Impression Primary Impression: Alcohol intoxication Qualified Codes: F10.929 - Alcohol use, unspecified with intoxication, unspecified Additional Impressions: Stuttering Gait disturbance Shingliris Qualified Codes: B02.9 - Zoster without complications Disposition: HOME, SELF-CARE Condition: Improved Departure-Patient Inst. Decision time for Depature: 17:58 (WALLY BILLY MD) Referrals: [facility] [place] (PCP/Family) Primary Care Physician Patient Instructions: Garcia (DC), Alcohol Use Disorder ED Add. Discharge Instructions: Avoid excessive consumption of alcohol. Follow-up with your primary care provider soon as possible. Return to the ER if you have worsening symptoms. All discharge instructions reviewed with patient and/or family. Voiced understanding. WALLY BILLY MD Nov 07, 2021 17:47 ALIYAH MANCIA Nov 07, 2021 19:24
[2021-11-07 20:03] VITALS: BP 110/78
== END 2021-11-07 20:05 | disposition home or self-care (01) ==
LOC: EDUNIT# 14:45 → ER 14:47
DX: F10.929 Alcohol use, unspecified with intoxication, unspecified (principal); B02.9 Zoster without complications; F80.81 Childhood onset fluency disorder; R26.9 Unspecified abnormalities of gait and mobility; Y90.8 Blood alcohol level of 240 mg/100 ml or more; F17.210 Nicotine dependence, cigarettes, uncomplicated; H54.62 Unqualified visual loss, left eye, normal vision right eye
CPT/HCPCS: 70450; 72125; 80053; 80306; 81000; 83735; 85025; 96360; 99284; G0480; 36415; 80320